=== PATIENT | female | born 1940 | race Caucasian/White ===

== ENCOUNTER → 2021-11-30 10:10 | Outpatient (CLI) | payer MEDICARE, OTHER, SELFPAY ==
[2021-11-30 10:42] LABS: Add Manual Diff / Slide Review NO; Basophils Absolute Auto 0 /uL (0-100); Basophils Percent Auto 0.9 % (0-2); Eosinophils Absolute Auto 200 /uL (0-450); Eosinophils Percent Auto 3.4 % (2-4); Hematocrit 37.9 % (36-46); Hemoglobin 12.7 g/dL (12.0-16.0); Lymphocytes Absolute Auto 900 /uL (1100-4500); Lymphocytes Percent Auto 18.5 % (25-40); Mean Corpuscular HGB Conc 33.7 % (30-36); Mean Corpuscular Hemoglobin 32.4 PG (26-34); Mean Corpuscular Volume 96.2 fL (80-100); Monocytes Absolute Auto 500 /uL (0-900); Monocytes Percent Auto 11.4 % (3-14); Neutrophils Absolute Auto 3100 /uL (1500-7000); Neutrophils Percent Auto 65.8 % (50-75); Platelet Count 171 X10^3/uL (150-400); Red Blood Cell Count 3.94 X10^6/uL (4.0-5.2); Red Cell Distribution Width 14.6 % (11.6-14.8); White Blood Cell Count 4.8 X10^3/uL (4.5-11.0)
[2021-11-30 11:00] LABS: Blood Urea Nitrogen 32 mg/dL (7-17); Calcium 9.8 mg/dL (8.4-10.2); Carbon Dioxide 31 mmol/L (22-32); Chloride 100 mmol/L (98-107); Cholesterol 193 mg/dL (140-199); Estimated Glomerular Filt Rate > 60.0 mL/min (>60); Glucose 91 mg/dL (80-110); HDL Cholesterol 48 mg/dL (40-60); HEMOLYSIS < 15 (0-50); LDL Cholesterol Calculated 125 mg/dL (<100); Potassium 5.3 mmol/L (3.4-5.1); Sodium 138 mmol/L (137-145); Triglycerides 100 mg/dL (35-150)
[2021-11-30 11:05] LABS: Rheumatoid Factor < 8.6 IU/mL (<12.0)
[2021-12-03 21:46] LABS: CCP Antibodies IgG/IgA 2 units (0-19)
== END ==
PROVIDERS: Family Provider Family Medicine; PCP Family Medicine; Referring Provider Family Medicine; Visit Provider Family Medicine
DX: J44.9 Chronic obstructive pulmonary disease, unspecified (principal); M79.641 Pain in right hand; Z13.220 Encounter for screening for lipoid disorders; M79.642 Pain in left hand
CPT/HCPCS: 36415; 80048; 80061; 85025; 86200; 86430

== ENCOUNTER → 2021-12-08 12:56 | Outpatient (CLI) | payer MEDICARE, OTHER, SELFPAY ==
--- NOTE | 2021-12-08 13:00 | DI.RAD.S_ITS ---
PROCEDURE: XR HAND RT MIN 3V INDICATIONS: Bilateral hand pain and deformation TECHNIQUE: 3 views of the hand(s) acquired. COMPARISON: None. FINDINGS: Bones: No fractures or dislocations. Carpal bones are normally aligned. No suspicious bony lesions. There are osteoarthritic changes, severe at the 1st carpometacarpal joint and the 5th distal interphalangeal joint, moderate at the 1st interphalangeal joint, the 2nd metacarpophalangeal joint, and the 4th proximal interphalangeal joint, and mild at multiple multiple other joints. There is periarticular bony erosion at the 5th distal interphalangeal joint. Soft tissues: Periarticular soft tissue swelling. No suspicious soft tissue calcifications. IMPRESSION: Severe osteoarthritic changes with bony erosion and soft tissue swelling. Recommend clinical correlation for inflammatory arthritis such as erosive OA. Dictated by: Timo Lau M.D. on 12/08/2021 at 17:44 Approved by: Timo Lau M.D. on 12/09/2021 at 8:09
--- NOTE | 2021-12-08 13:00 | DI.RAD.S_ITS ---
PROCEDURE: XR HAND LT MIN 3V INDICATIONS: Bilateral hand pain and deformation TECHNIQUE: 3 views of the hand(s) acquired. COMPARISON: None. FINDINGS: Bones: No fractures or dislocations. Carpal bones are normally aligned. No suspicious bony lesions. Severe 1st carpometacarpal joint degeneration. Degenerative joint disease in multiple interphalangeal joints. Periarticular bony erosion is present, most pronounced at the 5th distal interphalangeal joint. Soft tissues: No suspicious soft tissue calcifications. 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 Dictated by: Timo Lau M.D. on 12/08/2021 at 17:44 Approved by: Timo Lau M.D. on 12/09/2021 at 8:11
== END ==
PROVIDERS: Family Provider Family Medicine; PCP Family Medicine; Referring Provider Family Medicine; Visit Provider Family Medicine
DX: M18.12 Unilateral primary osteoarthritis of first carpometacarpal joint, left hand (principal); M19.042 Primary osteoarthritis, left hand; M79.641 Pain in right hand; M79.642 Pain in left hand; M79.89 Other specified soft tissue disorders; M25.449 Effusion, unspecified hand
CPT/HCPCS: 73130

== ENCOUNTER → 2022-02-01 11:51 | Outpatient (CLI) | payer MEDICARE, OTHER, SELFPAY ==
[2022-02-01 13:15] LABS: Alanine Aminotransferase 14 IU/L (<35); Albumin 4.4 g/dL (3.5-5.0); Albumin Globulin Ratio 1.7 (1.0-2.8); Alkaline Phosphatase 50 U/L (38-126); Aspartate Aminotransferase 22 IU/L (14-36); BUN Creatinine Ratio 33.7 (6-22); Bilirubin Total 0.4 mg/dL (0.2-1.3); Blood Urea Nitrogen 29 mg/dL (7-17); Calcium 9.4 mg/dL (8.4-10.2); Carbon Dioxide 31 mmol/L (22-32); Chloride 100 mmol/L (98-107); Estimated Glomerular Filt Rate > 60 mL/min (>60); Globulin 2.6 g/dL (1.7-4.1); Glucose 88 mg/dL (80-110); HEMOLYSIS < 15 (0-50); Sodium 136 mmol/L (137-145)
== END ==
PROVIDERS: Family Provider Family Medicine; PCP Family Medicine; Referring Provider Family Medicine; Visit Provider Family Medicine
DX: Z79.899 Other long term (current) drug therapy (principal)
CPT/HCPCS: 36415; 80053

== ENCOUNTER → 2022-03-16 13:45 | Outpatient (CLI) | payer MEDICARE, OTHER, SELFPAY ==
[2022-03-16 15:20] LABS: Alanine Aminotransferase 13 IU/L (<35); Albumin 4.5 g/dL (3.5-5.0); Albumin Globulin Ratio 1.8 (1.0-2.8); Alkaline Phosphatase 50 U/L (38-126); Aspartate Aminotransferase 22 IU/L (14-36); Bilirubin Total 0.4 mg/dL (0.2-1.3); Blood Urea Nitrogen 31 mg/dL (7-17); Calcium 9.5 mg/dL (8.4-10.2); Carbon Dioxide 30 mmol/L (22-32); Chloride 99 mmol/L (98-107); Estimated Glomerular Filt Rate > 60 mL/min (>60); Globulin 2.5 g/dL (1.7-4.1); Glucose 98 mg/dL (80-110); HEMOLYSIS < 15 (0-50); Potassium 5.2 mmol/L (3.4-5.1); Sodium 137 mmol/L (137-145)
== END ==
PROVIDERS: Family Provider Family Medicine; PCP Family Medicine; Referring Provider Family Medicine; Visit Provider Family Medicine
DX: Z79.899 Other long term (current) drug therapy (principal)
CPT/HCPCS: 36415; 80053

== ENCOUNTER → 2022-06-02 13:58 | Outpatient (CLI) | payer MEDICARE, OTHER, SELFPAY ==
[2022-06-02 18:26] LABS: BUN Creatinine Ratio 32.3 (6-22); Blood Urea Nitrogen 30 mg/dL (7-17); Calcium 9.3 mg/dL (8.4-10.2); Carbon Dioxide 33 mmol/L (22-32); Chloride 97 mmol/L (98-107); Estimated Glomerular Filt Rate > 60 mL/min (>60); Glucose 74 mg/dL (80-110); HEMOLYSIS < 15 (0-50); Potassium 5.2 mmol/L (3.4-5.1); Sodium 140 mmol/L (137-145)
== END ==
PROVIDERS: Family Provider Family Medicine; PCP Family Medicine; Referring Provider Family Medicine; Visit Provider Family Medicine
DX: E87.5 Hyperkalemia (principal); R79.9 Abnormal finding of blood chemistry, unspecified
CPT/HCPCS: 36415; 80048

== ENCOUNTER → 2022-09-07 11:18 | Outpatient (CLI) | payer MEDICARE, OTHER, SELFPAY ==
[2022-09-07 12:08] LABS: Add Manual Diff / Slide Review NO; Basophils Absolute Auto 0 /uL (0-100); Basophils Percent Auto 0.3 % (0-2); Eosinophils Absolute Auto 200 /uL (0-450); Eosinophils Percent Auto 3.2 % (2-4); Hematocrit 40.5 % (36-46); Hemoglobin 13.2 g/dL (12.0-16.0); Lymphocytes Absolute Auto 600 /uL (1100-4500); Lymphocytes Percent Auto 10.3 % (25-40); Mean Corpuscular HGB Conc 32.5 % (30-36); Mean Corpuscular Hemoglobin 32.8 PG (26-34); Monocytes Absolute Auto 700 /uL (0-900); Monocytes Percent Auto 11.8 % (3-14); Neutrophils Absolute Auto 4100 /uL (1500-7000); Neutrophils Percent Auto 74.4 % (50-75); Platelet Count 188 X10^3/uL (150-400); Red Blood Cell Count 4.01 X10^6/uL (4.0-5.2); Red Cell Distribution Width 15.3 % (11.6-14.8); White Blood Cell Count 5.6 X10^3/uL (4.5-11.0)
[2022-09-07 12:20] LABS: Blood Urea Nitrogen 27 mg/dL (7-17); Calcium 9.7 mg/dL (8.4-10.2); Carbon Dioxide 31 mmol/L (22-32); Chloride 99 mmol/L (98-107); Estimated Glomerular Filt Rate > 60 mL/min (>60); Glucose 87 mg/dL (80-110); HEMOLYSIS < 15 (0-50); Potassium 5.2 mmol/L (3.4-5.1); Sodium 138 mmol/L (137-145)
== END ==
PROVIDERS: Family Provider Family Medicine; PCP Family Medicine; Referring Provider Family Medicine; Visit Provider Family Medicine
DX: E87.5 Hyperkalemia (principal); J44.9 Chronic obstructive pulmonary disease, unspecified; Z79.899 Other long term (current) drug therapy
CPT/HCPCS: 36415; 80048; 85025

== ENCOUNTER 2022-11-03 18:46 | Emergency (ER) | payer MEDICARE, OTHER, SELFPAY ==
[2022-11-03] VITALS (9 sets, daily range): BP systolic 114–166; BP diastolic 55–99; PULSE 92–107; RESP 17–38; TEMP 36.7; O2SAT 89–96
--- NOTE | 2022-11-03 19:01 | DI.RAD.S_ITS ---
PROCEDURE: XR CHEST 1V INDICATIONS: Shortness of breath TECHNIQUE: One view of the chest was acquired. COMPARISON: None. FINDINGS: Surgical changes and devices: None. Lungs and pleura: Lungs are clear. No pleural effusions or pneumothorax. Mediastinum: Mediastinal contours appear normal. Heart size is mildly prominent. Bones and chest wall: No suspicious bony lesions. Overlying soft tissues appear unremarkable. Prominent degenerative changes are present overlying the right shoulder. IMPRESSION: No acute pulmonary process. Dictated by: Roxi Alexis M.D. on 11/03/2022 at 19:23 Approved by: Roxi Alexis M.D. on 11/03/2022 at 19:24
--- NOTE | 2022-11-03 19:52 | ED_ITS ---
HPI - General Adult General Chief complaint: Shortness of Breath/Dyspnea Stated complaint: cough shot of breath Time Seen by Provider: 11/03/22 19:02 Source: patient Mode of arrival: Wheelchair History of Present Illness HPI narrative: Patient is an 81-year-old female. States she frequently gets pneumonia. Is on oxygen at home not for underlying lung issues but because she is very kyphotic and this causes her to have problems expanding her lungs. States she wears oxygen at night and during the day when she needs it. She states that since this morning she has had a cough increase in shortness of breath. She states she is feeling very congested. No chest pain. No lower extremity swelling. She is concerned that she may have pneumonia once again. Related Data Home Medications Medication Instructions Recorded Confirmed duloxetine 30 mg capsule,delayed 90 mg PO BEDTIME 03/04/21 09/07/22 release (Cymbalta) calcium [calcium citrate] PO 12/31/21 09/07/22 cholecalciferol (vitamin D3) PO 12/31/21 09/07/22 multivitamin 1 tab PO DAILY 12/31/21 09/07/22 Previous Rx's Medication Instructions Recorded betamethasone valerate 0.1 % 1 applic topical BID PRN rash #45 11/26/21 topical cream grams Wheel Chair #1 ea 12/31/21 gabapentin 600 mg tablet 600 mg PO TID #270 tabs 01/08/22 albuterol sulfate 90 mcg/actuation 1 - 2 inh inhalation Q4-6H PRN 07/30/22 aerosol inhaler shortness of breath or wheezing #8.5 grams folic acid 1 mg tablet 1 mg PO DAILY #30 tabs 07/30/22 tiotropium bromide 18 mcg capsule 1 cap inhalation DAILY #30 07/30/22 with inhalation device (Spiriva inhalations with HandiHaler) celecoxib 200 mg capsule (Celebrex) 200 mg PO QDAY #90 caps 08/31/22 tramadol 50 mg tablet 50 mg PO QID #360 tabs 09/01/22 methotrexate sodium 7.5 mg tablet 7.5 mg PO QWEEK #12 tabs 09/07/22 hydrocodone 10 mg-acetaminophen 1 tab PO TID PRN pain #90 tabs 10/07/22 325 mg tablet amlodipine 5 mg tablet 5 mg PO DAILY #90 tabs 10/20/22 lisinopril 20 mg tablet 20 mg PO DAILY #90 tabs 10/20/22 hydrochlorothiazide 25 mg tablet 25 mg PO DAILY #90 tabs 10/22/22 hydrochlorothiazide 50 mg tablet 50 mg PO DAILY #90 tabs 10/22/22 azithromycin 250 mg tablet 250 mg PO DAILY 4 days #4 tabs 11/03/22 Allergies Allergy/AdvReac Type Severity Reaction Status Date / Time Penicillins Allergy Mild ITCHING Verified 09/07/22 10:46 Sulfa (Sulfonamide Allergy Mild ITCHING Verified 09/07/22 10:46 Antibiotics) oxycodone AdvReac Mild Nausea, Verified 09/07/22 10:46 vomiting Review of Systems Constitutional Constitutional: Reports system reviewed and no additional complaints, except as documented ENT Ears, Nose, Mouth, and Throat: Reports system reviewed and no additional complaints, except as documented Respiratory Respiratory: Reports system reviewed and no additional complaints, except as documented Hematologic/Lymphatic On Anticoagulants: No Patient History Medical History Bilateral hand pain Latasha albicans infection Chronic neck and back pain COPD (chronic obstructive pulmonary disease) Dry cough Eczema Elevated BUN Finger joint swelling Hyperkalemia On methotrexate therapy Social History Smoking Status: Former smoker alcohol intake: never substance use type: does not use Smoking Status: Former smoker Substance Use Type: does not use Exam Initial Vital Signs Initial Vital Signs: Vital Signs Temperature 98.1 F 11/03/22 18:55 Pulse Rate 107 H 11/03/22 18:55 Respiratory Rate 24 11/03/22 18:55 Blood Pressure 166/99 H 11/03/22 18:55 Pulse Oximetry 89 L 11/03/22 18:55 Oxygen Delivery Method Nasal Cannula 11/03/22 18:55 Oxygen Flow Rate 2 11/03/22 18:55 Const General: comfortable Resp Effort & Inspection: not labored, no respiratory distress and tachypneic Auscultation: clear to auscultation bilaterally Cardio Rate: tachycardic Rhythm: regular rhythm Back/Spine/Pelvis Other: Kyphosis Neuro General: patient alert and patient awake Extrem General: normal to inspection Course Orders Ordered: ED Orders 11/03/22 19:01 XR chest 1V Stat EKG-12 Lead Stat Measure peak expiratory flow ONCE RT Consult Eval and Treat NOW 11/03/22 19:40 Complete Blood Count AUTO DIFF Stat Comprehensive Metabolic Panel Stat Lactate (Lactic Acid) Stat NT-proBNP (BNP-Adult 18+) Stat Prothrombin Time INR Stat Respiratory Panel (Film Array) Stat Troponin I Stat Discontinued Medications Azithromycin (Azithromycin 250 Mg Tablet) 500 mg PO NOW ONE Stop: 11/03/22 21:25 Last Admin: 11/03/22 21:44 Dose: 500 mg Documented By: HNG Vital Signs Vital signs: Vital Signs - 8 hr 11/03/22 18:55 11/03/22 19:40 11/03/22 19:43 Temperature 98.1 F Pulse Rate 107 H 104 H Respiratory Rate 24 Blood Pressure 166/99 H 140/63 Pulse Oximetry 89 L 94 Oxygen Delivery Method Nasal Cannula Oxygen Flow Rate 2 11/03/22 19:43 11/03/22 20:00 11/03/22 20:01 Temperature Pulse Rate 102 H 101 H 97 H Respiratory Rate 34 H 38 H Blood Pressure Pulse Oximetry 93 90 L 92 Oxygen Delivery Method Oxygen Flow Rate 11/03/22 20:01 11/03/22 20:30 11/03/22 20:31 Temperature Pulse Rate 96 H Respiratory Rate 19 Blood Pressure 138/63 136/61 Pulse Oximetry 91 Oxygen Delivery Method Oxygen Flow Rate 11/03/22 20:31 11/03/22 21:00 11/03/22 21:00 Temperature Pulse Rate 99 H 92 H Respiratory Rate 20 17 Blood Pressure 114/55 L Pulse Oximetry 91 96 Oxygen Delivery Method Oxygen Flow Rate 11/03/22 21:30 11/03/22 21:30 Temperature Pulse Rate 101 H Respiratory Rate 37 H Blood Pressure 127/89 Pulse Oximetry 94 Oxygen Delivery Method Oxygen Flow Rate Medical Decision Making Lab Data Lab results reviewed: Yes I reviewed the patient's lab results. 11/03/22 19:40 11/03/22 19:40 Labs: Lab Results 11/03/22 11/03/22 11/03/22 Range/Units 19:40 19:40 19:40 WBC 7.0 (4.5-11.0) X10^3/uL RBC 3.79 L (4.0-5.2) X10^6/uL Hgb 12.6 (12.0-16.0) g/dL Hct 39.1 (36-46) % MCV 103.2 H (80-100) fL MCH 33.1 (26-34) PG MCHC 32.1 (30-36) % RDW 15.3 H (11.6-14.8) % Plt Count 152 (150-400) X10^3/uL Neut % (Auto) 82.7 H (50-75) % Lymph % (Auto) 7.0 L (25-40) % [place] % (Auto) 6.9 (3-14) % Eos % (Auto) 2.2 (2-4) % Baso % (Auto) 1.2 (0-2) % Neut # (Auto) 5800 (1963-9905) /uL Lymph # (Auto) 500 L (5465-3071) /uL [place] # (Auto) 500 (0-900) /uL Eos # (Auto) 200 (0-450) /uL Baso # (Auto) 100 (0-100) /uL PT 12.0 (10.1-12.7) SECONDS INR 1.0 (0.9-1.3) Sodium 138 (137-145) mmol/L Potassium 5.1 (3.4-5.1) mmol/L Chloride 98 (98-107) mmol/L Carbon Dioxide 35 H (22-32) mmol/L BUN 27 H (7-17) mg/dL Creatinine 0.64 (0.52-1.04) mg/dL Estimated GFR > 60 (>60) mL/min BUN/Creatinine Ratio 42.2 H (6-22) Glucose 116 H (80-110) mg/dL Lactate (0.7-2.1) mmol/L Calcium 9.2 (8.4-10.2) mg/dL Total Bilirubin 0.4 (0.2-1.3) mg/dL AST 21 (14-36) IU/L ALT 17 (<35) IU/L Alkaline Phosphatase 66 (38-126) U/L Troponin I < 0.012 (0.01-0.034) ng/mL NT-Pro-B Natriuret Pep 138 (<450) pg/mL Total Protein 7.5 (6.3-8.2) g/dL Albumin 4.4 (3.5-5.0) g/dL Globulin 3.1 (1.7-4.1) g/dL Albumin/Globulin Ratio 1.4 (1.0-2.8) Chlamy pneumoniae PCR (Not Detect) Adenovirus (PCR) (Not Detect) B. pertussis DNA (PCR) (Not Detecte) B.parapertussis DNA PCR (Not Detecte) Coronavirus OC43 (PCR) (Not Detect) Coronavirus HKU1 (PCR) (Not Detect) Coronavirus 229E (PCR) (Not Detect) SARS-CoV-2 (PCR) (Not Detecte) Coronavirus NL63 (PCR) (Not Detect) Human Metapneumovir PCR (Not Detect) Influenza Type A (PCR) (Not Detect) Influenza Type B (PCR) (Not Detect) M. pneumoniae (PCR) (Not Detect) Parainfluenza 1 (PCR) (Not Detect) Parainfluenza 2 (PCR) (Not Detect) Parainfluenza 3 (PCR) (Not Detect) Parainfluenza 4 (PCR) (Not Detect) RSV (PCR) (Not Detect) Entero/Rhino (PCR) (Not Detect) 11/03/22 11/03/22 Range/Units 19:40 19:40 WBC (4.5-11.0) X10^3/uL RBC (4.0-5.2) X10^6/uL Hgb (12.0-16.0) g/dL Hct (36-46) % MCV (80-100) fL MCH (26-34) PG MCHC (30-36) % RDW (11.6-14.8) % Plt Count (150-400) X10^3/uL Neut % (Auto) (50-75) % Lymph % (Auto) (25-40) % [place] % (Auto) (3-14) % Eos % (Auto) (2-4) % Baso % (Auto) (0-2) % Neut # (Auto) (4283-3474) /uL Lymph # (Auto) (5018-0260) /uL [place] # (Auto) (0-900) /uL Eos # (Auto) (0-450) /uL Baso # (Auto) (0-100) /uL PT (10.1-12.7) SECONDS INR (0.9-1.3) Sodium (137-145) mmol/L Potassium (3.4-5.1) mmol/L Chloride (98-107) mmol/L Carbon Dioxide (22-32) mmol/L BUN (7-17) mg/dL Creatinine (0.52-1.04) mg/dL Estimated GFR (>60) mL/min BUN/Creatinine Ratio (6-22) Glucose (80-110) mg/dL Lactate 0.7 (0.7-2.1) mmol/L Calcium (8.4-10.2) mg/dL Total Bilirubin (0.2-1.3) mg/dL AST (14-36) IU/L ALT (<35) IU/L Alkaline Phosphatase (38-126) U/L Troponin I (0.01-0.034) ng/mL NT-Pro-B Natriuret Pep (<450) pg/mL Total Protein (6.3-8.2) g/dL Albumin (3.5-5.0) g/dL Globulin (1.7-4.1) g/dL Albumin/Globulin Ratio (1.0-2.8) Chlamy pneumoniae PCR Not detected (Not Detect) Adenovirus (PCR) Not detected (Not Detect) B. pertussis DNA (PCR) Not detected (Not Detecte) B.parapertussis DNA PCR Not detected (Not Detecte) Coronavirus OC43 (PCR) Not detected (Not Detect) Coronavirus HKU1 (PCR) Not detected (Not Detect) Coronavirus 229E (PCR) Not detected (Not Detect) SARS-CoV-2 (PCR) Not detected (Not Detecte) Coronavirus NL63 (PCR) Not detected (Not Detect) Human Metapneumovir PCR Not detected (Not Detect) Influenza Type A (PCR) Not detected (Not Detect) Influenza Type B (PCR) Not detected (Not Detect) M. pneumoniae (PCR) Not detected (Not Detect) Parainfluenza 1 (PCR) Not detected (Not Detect) Parainfluenza 2 (PCR) Not detected (Not Detect) Parainfluenza 3 (PCR) Not detected (Not Detect) Parainfluenza 4 (PCR) Not detected (Not Detect) RSV (PCR) Not detected (Not Detect) Entero/Rhino (PCR) Not detected (Not Detect) Imaging Data Chest x-ray: Radiologist's Impression: PROCEDURE:? XR CHEST 1V ? INDICATIONS:? Shortness of breath ? TECHNIQUE:? One view of the chest was acquired.? ? COMPARISON:? None. ? FINDINGS:? ? Surgical changes and devices:? None.? ? Lungs and pleura:? Lungs are clear.? No pleural effusions or pneumothorax.? ? Mediastinum:? Mediastinal contours appear normal.? Heart size is mildly prominent. ? Bones and chest wall:? No suspicious bony lesions.? Overlying soft tissues appear unremarkable.? Prominent degenerative changes are present overlying the right shoulder. ? IMPRESSION:? No acute pulmonary process. ECG Data Attestation: I personally reviewed and interpreted this ECG as follows: Interpretation: Sinus tachycardia Ventricular rate 108 Normal axis Normal QRS Normal QTC No ST T wave changes MDM Narrative Medical decision making narrative: Her chest x-rays is unremarkable and her respiratory panel is negative. Patient is able to maintain her oxygen saturations on oxygen by nasal cannula. She is congested on exam. Low suspicion for ACS. Had a discussion with her regarding this. I acknowledged that the patient does not have a specific indication of a bacterial pneumonia/infection and the nasal congestion is most likely viral in origin however given her chronic medical issues, use of oxygen, inability to perform good breathing and coughing I feel that treating her with antibiotics to prevent any potential issues with pneumonia would be warranted in her case. She was given a 1st dose here in the emergency department and a prescription for the remainder was sent to the pharmacy of her choice. She was given return precautions. She expressed understanding and agreement. Discharge Plan Departure Patient Disposition: Home Clinical Impression: Acute upper respiratory infection Instructions: Cough Activity Restrictions/Additional Instructions: I recommend that you continue to take all of your medications as directed. A prescription for the remainder of the course of antibiotics was sent to [facility] per your request. Return to the emergency department for any new or worsening symptoms. Prescriptions: New azithromycin 250 mg tablet 250 mg PO DAILY 4 Days Qty: 4 0RF Rx Instructions: start on day 2 of therapy No Action betamethasone valerate 0.1 % cream 1 applic topical BID PRN (Reason: rash) Qty: 45 5RF gabapentin 600 mg tablet 600 mg PO TID Qty: 270 3RF celecoxib [Celebrex] 200 mg capsule 200 mg PO QDAY Qty: 90 0RF tramadol 50 mg tablet 50 mg PO QID Qty: 360 0RF hydrocodone-acetaminophen 10-325 mg tablet 1 tab PO TID PRN (Reason: pain) Qty: 90 0RF amlodipine 5 mg tablet 5 mg PO DAILY Qty: 90 3RF lisinopril 20 mg tablet 20 mg PO DAILY Qty: 90 2RF hydrochlorothiazide 50 mg tablet 50 mg PO DAILY Qty: 90 2RF Rx Instructions: TAKE WITH 25MG TAB FOR TOTAL 75MG DAILY DOSE hydrochlorothiazide 25 mg tablet 25 mg PO DAILY Qty: 90 2RF Rx Instructions: TAKE WITH 50MG TABLET FOR TOTAL 75 MG DOSE duloxetine [Cymbalta] 30 mg capsule,delayed release(DR/EC) 90 mg PO BEDTIME methotrexate sodium 7.5 mg tablet 7.5 mg PO QWEEK Qty: 12 3RF multivitamin Tablet 1 tab PO DAILY calcium [calcium citrate] PO cholecalciferol (vitamin D3) PO (DME) Wheel Chair See Rx Instructions .Route .MEDSUPPLY Qty: 1 0RF Rx Instructions: As directed Spiriva with HandiHaler 18 mcg capsule, w/inhalation device 1 cap inhalation DAILY Qty: 30 11RF Rx Instructions: puncture 1 cap using device; one dose = 2 inhalations albuterol sulfate 90 mcg/actuation HFA aerosol inhaler 1 - 2 inh inhalation Q4-6H PRN (Reason: shortness of breath or wheezing) Qty: 8.5 11RF folic acid 1 mg tablet 1 mg PO DAILY Qty: 30 11RF Rx Instructions: while on methotrexate Referrals: Mj Velasquez DO [Primary Care Provider] - Stand Alone Forms: Patient Portal/API
[2022-11-03 19:55] LABS: Add Manual Diff / Slide Review NO; Basophils Absolute Auto 100 /uL (0-100); Basophils Percent Auto 1.2 % (0-2); Eosinophils Absolute Auto 200 /uL (0-450); Eosinophils Percent Auto 2.2 % (2-4); Hematocrit 39.1 % (36-46); Hemoglobin 12.6 g/dL (12.0-16.0); Lymphocytes Absolute Auto 500 /uL (1100-4500); Mean Corpuscular HGB Conc 32.1 % (30-36); Mean Corpuscular Hemoglobin 33.1 PG (26-34); Mean Corpuscular Volume 103.2 fL (80-100); Monocytes Absolute Auto 500 /uL (0-900); Monocytes Percent Auto 6.9 % (3-14); Neutrophils Absolute Auto 5800 /uL (1500-7000); Neutrophils Percent Auto 82.7 % (50-75); Platelet Count 152 X10^3/uL (150-400); Red Blood Cell Count 3.79 X10^6/uL (4.0-5.2); Red Cell Distribution Width 15.3 % (11.6-14.8)
[2022-11-03 20:02] LABS: Lactate (Lactic Acid) 0.7 mmol/L (0.7-2.1)
[2022-11-03 20:03] LABS: Alanine Aminotransferase 17 IU/L (<35); Albumin 4.4 g/dL (3.5-5.0); Albumin Globulin Ratio 1.4 (1.0-2.8); Alkaline Phosphatase 66 U/L (38-126); Aspartate Aminotransferase 21 IU/L (14-36); BUN Creatinine Ratio 42.2 (6-22); Bilirubin Total 0.4 mg/dL (0.2-1.3); Blood Urea Nitrogen 27 mg/dL (7-17); Calcium 9.2 mg/dL (8.4-10.2); Carbon Dioxide 35 mmol/L (22-32); Chloride 98 mmol/L (98-107); Estimated Glomerular Filt Rate > 60 mL/min (>60); Globulin 3.1 g/dL (1.7-4.1); Glucose 116 mg/dL (80-110); HEMOLYSIS < 15 (0-50); Potassium 5.1 mmol/L (3.4-5.1); Sodium 138 mmol/L (137-145); Total Protein 7.5 g/dL (6.3-8.2)
[2022-11-03 20:15] LABS: NT-proBNP (BNP-Adult 18+) 138 pg/mL (<450); Troponin I < 0.012 ng/mL (0.01-0.034)
[2022-11-03 20:41] LABS: Adenovirus Not Detected (Not Detect); B. parapertussis Not Detected (Not Detecte); Bordetella pertussis Not Detected (Not Detecte); Chlamydophila pneumoniae Not Detected (Not Detect); Coronavirus 229E Not Detected (Not Detect); Coronavirus HKU1 Not Detected (Not Detect); Coronavirus NL 63 Not Detected (Not Detect); Coronavirus OC43 Not Detected (Not Detect); Human Metapneumovirus Not Detected (Not Detect); Human Rhinovirus/Enterovirus Not Detected (Not Detect); Influenza A Not Detected (Not Detect); Influenza B Not Detected (Not Detect); Mycoplasma pneumoniae Not Detected (Not Detect); Parainfluenza Virus 1 Not Detected (Not Detect); Parainfluenza Virus 2 Not Detected (Not Detect); Parainfluenza Virus 3 Not Detected (Not Detect); Parainfluenza Virus 4 Not Detected (Not Detect); Respiratory Syncytial Virus Not Detected (Not Detect); SARS- CoV-2 Not Detected (Not Detecte)
[2022-11-03] MEDS: AZITHROMYCIN 250 MG TABLET 500 MG PO (21:44)
== END 2022-11-03 21:50 | disposition home or self-care (01) ==
PROVIDERS: Emergency Provider Emergency Medicine; Family Provider Family Medicine; PCP Family Medicine
DX: J06.9 Acute upper respiratory infection, unspecified (principal); R05.9 Cough, unspecified; R06.02 Shortness of breath; Z20.822 Contact with and (suspected) exposure to COVID-19
CPT/HCPCS: 36415; 71045; 80053; 83605; 83880; 84484; 85025; 85610; 87633; 93005; 99284

== ENCOUNTER 2023-01-22 19:48 | Emergency (ER) | payer MEDICARE, OTHER, SELFPAY ==
[2023-01-22] VITALS (9 sets, daily range): BP systolic 96–116; BP diastolic 47–56; PULSE 92–104; RESP 18–36; O2SAT 84–93; BMI 27.8
--- NOTE | 2023-01-22 20:42 | ED.GENADULT ---
HPI - General Adult General Chief complaint: Weakness Stated complaint: fell shaky/not feeling well min urine Time Seen by Provider: 01/22/23 20:42 Source: patient and family Mode of arrival: Wheelchair History of Present Illness HPI narrative: 82-year-old female who earlier today slid down from her bed onto the floor. She did sustain some bruising to her right side. She did not hit her head. No other injuries from the event. She spends most of her time in a wheelchair although she can transition from the wheelchair to her bed or from the wheelchair to the couch the toilet. She can dress herself. She can put on her own shoes. She does bathe by herself but her family is normally in the house when this happens. She states she is here in the emergency department this evening because she potentially has a urinary tract infection. She also states she is feeling shaky and generally does not feel right. She denies chest pain or shortness of breath. No abdominal pain no nausea vomiting pain no headache. She is on oxygen home. No change in her respiratory status. Related Data Home Medications Medication Instructions Recorded Confirmed duloxetine 30 mg capsule,delayed 90 mg PO BEDTIME 03/04/21 01/04/23 release (Cymbalta) calcium [calcium citrate] PO 12/31/21 01/04/23 cholecalciferol (vitamin D3) PO 12/31/21 01/04/23 multivitamin 1 tab PO DAILY 12/31/21 01/04/23 Previous Rx's Medication Instructions Recorded betamethasone valerate 0.1 % 1 applic topical BID PRN rash #45 11/26/21 topical cream grams Wheel Chair #1 ea 12/31/21 albuterol sulfate 90 mcg/actuation 1 - 2 inh inhalation Q4-6H PRN 07/30/22 aerosol inhaler shortness of breath or wheezing #8.5 grams folic acid 1 mg tablet 1 mg PO DAILY #30 tabs 07/30/22 tramadol 50 mg tablet 50 mg PO QID #360 tabs 09/01/22 methotrexate sodium 7.5 mg tablet 7.5 mg PO QWEEK #12 tabs 09/07/22 amlodipine 5 mg tablet 5 mg PO DAILY #90 tabs 10/20/22 lisinopril 20 mg tablet 20 mg PO DAILY #90 tabs 10/20/22 hydrochlorothiazide 25 mg tablet 25 mg PO DAILY #90 tabs 10/22/22 hydrochlorothiazide 50 mg tablet 50 mg PO DAILY #90 tabs 10/22/22 tiotropium bromide 1.25 See Rx Instructions .Route 11/04/22 mcg/actuation mist for inhalation .COMPLEX #12 grams (Spiriva Respimat) gabapentin 600 mg tablet 600 mg PO TID #270 tabs 11/10/22 celecoxib 200 mg capsule (Celebrex) 200 mg PO QDAY #90 caps 12/01/22 hydrocodone 10 mg-acetaminophen 1 tab PO Q6H PRN pain #120 tabs 01/04/23 325 mg tablet Allergies Allergy/AdvReac Type Severity Reaction Status Date / Time Penicillins Allergy Mild ITCHING Verified 01/04/23 11:27 Sulfa (Sulfonamide Allergy Mild ITCHING Verified 01/04/23 11:27 Antibiotics) oxycodone AdvReac Mild Nausea, Verified 01/04/23 11:27 vomiting Review of Systems Review of Systems ROS Unobtainable: All systems reviewed & are unremarkable except as noted in HPI and below Patient History Medical History Acute thoracic back pain Bilateral hand pain Latasha albicans infection Chronic neck and back pain Chronic pain Chronic, continuous use of opioids COPD (chronic obstructive pulmonary disease) Dry cough Eczema Elevated BUN Finger joint swelling Hyperkalemia On methotrexate therapy Social History Smoking Status: Former smoker alcohol intake: never substance use type: does not use Smoking Status: Former smoker Substance Use Type: does not use Exam Initial Vital Signs Initial Vital Signs: Vital Signs Blood Pressure 116/54 L 01/22/23 20:17 Const General: cooperative and No ill appearing HENIL Head: normal to inspection and normocephalic Resp Effort & Inspection: tachypneic Auscultation: clear to auscultation bilaterally Cardio Rate: regular rate Rhythm: regular rhythm GI Inspection: normal to inspection and non-distended Skin Other: Bruising on the right flank and right lower back. There are no breaks in the skin. Only minimally tender to palpation. Neuro General: patient alert, patient awake and moves all extremities Extrem General: capillary refill normal Scores GCS [place] coma scale eye opening: Spontaneous [place] coma scale verbal response: Orientated Ingrid coma scale motor response: Obey commands [place] coma scale total score: 15 Course Orders Ordered: Discontinued Medications Lidocaine (Lidocaine Patch 1 Each Adh..Patch) 1 each TOP NOW ONE Stop: 01/22/23 22:29 Last Admin: 01/22/23 23:12 Dose: 1 each Documented By: ARTEMIO Vital Signs Vital signs: Vital Signs - 8 hr 01/22/23 22:00 01/22/23 22:30 01/22/23 22:34 Pulse Rate 93 H 100 H Respiratory Rate 21 29 H Blood Pressure 113/56 L Pulse Oximetry 93 84 L Oxygen Delivery Method Nasal Cannula Oxygen Flow Rate 3 01/22/23 23:00 01/22/23 23:00 Pulse Rate 92 H Respiratory Rate 26 H Blood Pressure 96/47 L Pulse Oximetry 87 L Oxygen Delivery Method Nasal Cannula Oxygen Flow Rate 3 Medical Decision Making Lab Data Lab results reviewed: Yes I reviewed the patient's lab results. 01/22/23 20:35 01/22/23 20:35 Labs: Lab Results 01/22/23 01/22/23 Range/Units 20:35 20:35 WBC 11.7 H (4.5-11.0) X10^3/uL RBC 3.48 L (4.0-5.2) X10^6/uL Hgb 11.6 L (12.0-16.0) g/dL Hct 36.3 (36-46) % MCV 104.3 H (80-100) fL MCH 33.2 (26-34) PG MCHC 31.9 (30-36) % RDW 15.8 H (11.6-14.8) % Plt Count 138 L (150-400) X10^3/uL Neut % (Auto) Not Reportable Lymph % (Auto) Not Reportable [place] % (Auto) Not Reportable Eos % (Auto) Not Reportable Baso % (Auto) Not Reportable Lymph # (Auto) Not Reportable [place] # (Auto) Not Reportable Baso # (Auto) Not Reportable Total Counted 100 Seg Neutrophils % 84.0 H (38-70) % Band Neutrophils % 7.0 (3-7) % Lymphocytes % (Manual) 2.0 L (25-45) % Monocytes % (Manual) 5.0 (2-11) % Eosinophils % (Manual) 1.0 L (2-4) % Basophils % (Manual) 1.0 (0-1) % Neutrophils # (Manual) 46144 H (1470-7318) /uL RBC Morphology See below Anisocytosis 1+ H Macrocytosis 1+ H Sodium 137 (137-145) mmol/L Potassium 5.1 (3.4-5.1) mmol/L Chloride 95 L (98-107) mmol/L Carbon Dioxide 37 H (22-32) mmol/L BUN 45 H (7-17) mg/dL Creatinine 1.09 H (0.52-1.04) mg/dL Estimated GFR 51 L (>60) mL/min BUN/Creatinine Ratio 41.3 H (6-22) Glucose 126 H (80-110) mg/dL Calcium 8.7 (8.4-10.2) mg/dL Total Bilirubin 0.4 (0.2-1.3) mg/dL AST 32 (14-36) IU/L ALT 36 H (<35) IU/L Alkaline Phosphatase 68 (38-126) U/L Total Creatine Kinase 44 (30-135) U/L CK-MB (CK-2) TNP CK-MB (CK-2) Rel Index TNP Troponin I < 0.012 (0.01-0.034) ng/mL Total Protein 7.3 (6.3-8.2) g/dL Albumin 4.2 (3.5-5.0) g/dL Globulin 3.1 (1.7-4.1) g/dL Albumin/Globulin Ratio 1.4 (1.0-2.8) Lipase 39 (23-300) U/L Urine Dip Bedside Urine Glucose Negative Bedside Urine Bilirubin - Negative Bedside Urine Ketone - Negative Urine Specific [place] 1.015 Bedside Urine Occult Blood - Negative Bedside Urine pH 6 Bedside Urine Protein - Negative Bedside Urine Urobilinogen - Negative Bedside Urine Nitrite - Negative Bedside Urine Leukocytes - Negative Esterase Point of care testing: Urine Dip Bedside Urine Glucose Negative Bedside Urine Bilirubin - Negative Bedside Urine Ketone - Negative Urine Specific [place] 1.015 Bedside Urine Occult Blood - Negative Bedside Urine pH 6 Bedside Urine Protein - Negative Bedside Urine Urobilinogen - Negative Bedside Urine Nitrite - Negative Bedside Urine Leukocytes - Negative Esterase ECG Data Attestation: I personally reviewed and interpreted this ECG as follows: Interpretation: Sinus rhythm Ventricular rate 95 Normal axis Normal QRS Normal QTC No ST T wave changes MDM Narrative Medical decision making narrative: Patient does not have signs of urinary tract infection. She is hypoxic but she states that at baseline she is in the mid 80s. She does have oxygen at home. Low suspicion for ACS. She does have bruising on her right flank however there are no other breaks in the skin. She is some very minor tenderness to palpation this area. No other abdominal tenderness. No indication for antibiotics. Reassured the patient workup here in the emergency department looks well which she was happy with this information. We will discharge patient home with family. She was given return precautions. She expressed understanding and agreement. Discharge Plan Departure Patient Disposition: Home Clinical Impression: Episodes of trembling, Contusion of flank and back Instructions: DI for Contusion Activity Restrictions/Additional Instructions: Continue to take all of your medications as directed. Contact your primary doctor for follow-up. Return to the emergency department for new or worsening symptoms. Prescriptions: No Action betamethasone valerate 0.1 % cream 1 applic topical BID PRN (Reason: rash) Qty: 45 5RF tramadol 50 mg tablet 50 mg PO QID Qty: 360 0RF amlodipine 5 mg tablet 5 mg PO DAILY Qty: 90 3RF lisinopril 20 mg tablet 20 mg PO DAILY Qty: 90 2RF hydrochlorothiazide 50 mg tablet 50 mg PO DAILY Qty: 90 2RF Rx Instructions: TAKE WITH 25MG TAB FOR TOTAL 75MG DAILY DOSE hydrochlorothiazide 25 mg tablet 25 mg PO DAILY Qty: 90 2RF Rx Instructions: TAKE WITH 50MG TABLET FOR TOTAL 75 MG DOSE Spiriva Respimat 1.25 mcg/actuation mist See Rx Instructions .ROUTE .COMPLEX Qty: 12 3RF Dose Instruction: USE 2 INHALATIONS DAILY Rx Instructions: USE 2 INHALATIONS DAILY gabapentin 600 mg tablet 600 mg PO TID Qty: 270 3RF celecoxib [Celebrex] 200 mg capsule 200 mg PO QDAY Qty: 90 1RF hydrocodone-acetaminophen 10-325 mg tablet 1 tab PO Q6H PRN (Reason: pain) Qty: 120 0RF duloxetine [Cymbalta] 30 mg capsule,delayed release(DR/EC) 90 mg PO BEDTIME methotrexate sodium 7.5 mg tablet 7.5 mg PO QWEEK Qty: 12 3RF multivitamin Tablet 1 tab PO DAILY calcium [calcium citrate] PO cholecalciferol (vitamin D3) PO (DME) Wheel Chair See Rx Instructions .Route .MEDSUPPLY Qty: 1 0RF Rx Instructions: As directed albuterol sulfate 90 mcg/actuation HFA aerosol inhaler 1 - 2 inh inhalation Q4-6H PRN (Reason: shortness of breath or wheezing) Qty: 8.5 11RF folic acid 1 mg tablet 1 mg PO DAILY Qty: 30 11RF Rx Instructions: while on methotrexate Referrals: Mj Velasquez, [Primary Care Provider] - Stand Alone Forms: Patient Portal/API
[2023-01-22 20:57] LABS: Alanine Aminotransferase 36 IU/L (<35); Albumin 4.2 g/dL (3.5-5.0); Albumin Globulin Ratio 1.4 (1.0-2.8); Alkaline Phosphatase 68 U/L (38-126); Aspartate Aminotransferase 32 IU/L (14-36); BUN Creatinine Ratio 41.3 (6-22); Bilirubin Total 0.4 mg/dL (0.2-1.3); Blood Urea Nitrogen 45 mg/dL (7-17); Calcium 8.7 mg/dL (8.4-10.2); Chloride 95 mmol/L (98-107); Creatine Kinase 44 U/L (30-135); Estimated Glomerular Filt Rate 51 mL/min (>60); Globulin 3.1 g/dL (1.7-4.1); Glucose 126 mg/dL (80-110); HEMOLYSIS < 15 (0-50); Lipase 39 U/L (23-300); Potassium 5.1 mmol/L (3.4-5.1); Sodium 137 mmol/L (137-145); Total Protein 7.3 g/dL (6.3-8.2)
[2023-01-22 21:02] LABS: Hematocrit 36.3 % (36-46); Hemoglobin 11.6 g/dL (12.0-16.0); Mean Corpuscular HGB Conc 31.9 % (30-36); Mean Corpuscular Hemoglobin 33.2 PG (26-34); Mean Corpuscular Volume 104.3 fL (80-100); Platelet Count 138 X10^3/uL (150-400); Red Blood Cell Count 3.48 X10^6/uL (4.0-5.2); Red Cell Distribution Width 15.8 % (11.6-14.8); White Blood Cell Count 11.7 X10^3/uL (4.5-11.0)
[2023-01-22 21:03] LABS: Carbon Dioxide 37 mmol/L (22-32)
[2023-01-22 21:08] LABS: Troponin I < 0.012 ng/mL (0.01-0.034)
[2023-01-22 21:44] LABS: Add Manual Diff / Slide Review YES
[2023-01-22 21:48] LABS: Neutrophils Absolute Manual 10647 /uL (3000-5900); Total Cells Counted 100
[2023-01-22 21:49] LABS: Anisocytosis 1+; Macrocytosis 1+
[2023-01-22] MEDS: LIDOCAINE PATCH 1 EACH ADH..PATCH TOP (23:12)
== END 2023-01-22 23:18 | disposition home or self-care (01) ==
PROVIDERS: Emergency Provider Emergency Medicine; Family Provider Family Medicine; PCP Family Medicine
DX: S30.1XXA Contusion of abdominal wall, initial encounter (principal); S30.0XXA Contusion of lower back and pelvis, initial encounter; W06.XXXA Fall from bed, initial encounter; R03.1 Nonspecific low blood-pressure reading
CPT/HCPCS: 36415; 80053; 81003; 82550; 83690; 84484; 85007; 85025; 93005; 93010; 99283; 99285

== ENCOUNTER → 2023-03-04 10:46 | Outpatient (CLI) | payer MEDICARE, OTHER, SELFPAY ==
[2023-03-04 11:50] LABS: Add Manual Diff / Slide Review NO; Basophils Absolute Auto 0 /uL (0-100); Basophils Percent Auto 0.6 % (0-2); Eosinophils Absolute Auto 200 /uL (0-450); Eosinophils Percent Auto 2.7 % (2-4); Hematocrit 43.8 % (36-46); Hemoglobin 14.2 g/dL (12.0-16.0); Lymphocytes Absolute Auto 700 /uL (1100-4500); Lymphocytes Percent Auto 11.9 % (25-40); Mean Corpuscular HGB Conc 32.5 % (30-36); Mean Corpuscular Hemoglobin 33.4 PG (26-34); Mean Corpuscular Volume 102.9 fL (80-100); Monocytes Absolute Auto 600 /uL (0-900); Monocytes Percent Auto 11.1 % (3-14); Neutrophils Absolute Auto 4100 /uL (1500-7000); Neutrophils Percent Auto 73.7 % (50-75); Platelet Count 146 X10^3/uL (150-400); Red Blood Cell Count 4.26 X10^6/uL (4.0-5.2); Red Cell Distribution Width 16.5 % (11.6-14.8); White Blood Cell Count 5.6 X10^3/uL (4.5-11.0)
[2023-03-04 12:16] LABS: HEMOLYSIS < 15 (0-50); Potassium 5.3 mmol/L (3.4-5.1)
[2023-03-04 12:17] LABS: Alanine Aminotransferase 17 IU/L (<35); Albumin 4.4 g/dL (3.5-5.0); Albumin Globulin Ratio 1.4 (1.0-2.8); Alkaline Phosphatase 63 U/L (38-126); Aspartate Aminotransferase 21 IU/L (14-36); BUN Creatinine Ratio 37.5 (6-22); Bilirubin Total 0.6 mg/dL (0.2-1.3); Blood Urea Nitrogen 30 mg/dL (7-17); Calcium 9.4 mg/dL (8.4-10.2); Carbon Dioxide 36 mmol/L (22-32); Chloride 95 mmol/L (98-107); Cholesterol 200 mg/dL (140-199); Estimated Glomerular Filt Rate > 60 mL/min (>60); Globulin 3.2 g/dL (1.7-4.1); Glucose 80 mg/dL (80-110); HDL Cholesterol 61 mg/dL (40-60); LDL Cholesterol Calculated 110 mg/dL (<100); Sodium 136 mmol/L (137-145); Total Protein 7.6 g/dL (6.3-8.2); Triglycerides 147 mg/dL (35-150)
== END ==
PROVIDERS: Family Provider Family Medicine; PCP Family Medicine; Referring Provider Family Medicine; Visit Provider Family Medicine
DX: E87.5 Hyperkalemia (principal); R79.9 Abnormal finding of blood chemistry, unspecified
CPT/HCPCS: 36415; 80053; 80061; 85025

== ENCOUNTER 2023-03-21 13:27 | Inpatient (IN) | payer MEDICARE, OTHER, SELFPAY ==
[2023-03-21] VITALS (33 sets, daily range): BP systolic 122–207; BP diastolic 58–88; PULSE 73–109; RESP 15–46; TEMP 35.9–36.7; O2SAT 83–100; BMI 27.4
--- NOTE | 2023-03-21 13:41 | DI.RAD.S_ITS ---
PROCEDURE: XR CHEST 1V INDICATIONS: Shortness of breath TECHNIQUE: One view of the chest was acquired. COMPARISON: [facility], CR, XR CHEST 1V, 11/03/2022, 19:13. FINDINGS: Surgical changes and devices: Post ORIF changes are seen in left humeral shaft. Lungs and pleura: There is mild pulmonary vascular congestion. No definite focal infiltrate. No pleural effusions or pneumothorax. Mediastinum: Tortuous thoracic aorta is seen. Heart size is enlarged. Bones and chest wall: No suspicious bony lesions. Overlying soft tissues appear unremarkable. IMPRESSION: Cardiomegaly and mild congestion. No definite focal infiltrate. No pleural effusion or pneumothorax. Dictated by: Rodolfo Gates M.D. on 03/21/2023 at 14:09 Approved by: Rodolfo Gates M.D. on 03/21/2023 at 14:10
[2023-03-21 13:56] LABS: Prothrombin Time 11.7 SECONDS (10.1-12.7)
--- NOTE | 2023-03-21 13:58 | ED_ITS ---
HPI - SOB/Dyspnea General Chief Complaint: Shortness of Breath/Dyspnea Stated Complaint: SOB 85% on 3L Time Seen by Provider: 03/21/23 13:53 Source: patient and EMS Mode of arrival: EMS Limitations: no limitations History of Present Illness HPI Narrative: Patient 82-year-old female history of severe scoliosis chronic back pain, restrictive lung disease secondary to osteoporotic thoracic compression fractures, osteoporosis presenting today with increasing weakness and increasing shortness of breath. She and daughter report that she is had increasing weakness over last 3 days. She is more productive cough. She has a decrease in appetite. Denies any fever. Does have an oxygen concentrator, she is needing it all the time now. Daughter reports that she frequently gets pneumonia that is only diagnosed on CT. She denies any peripheral edema abdominal pain nausea or vomiting. Related Data Home Medications Medication Instructions Recorded Confirmed cholecalciferol (vitamin D3) 1,000 units PO DAILY 12/31/21 03/08/23 multivitamin 1 tab PO DAILY 12/31/21 03/21/23 lidocaine 4 % topical patch 1 patch topical TID PRN Pain, Mild 03/21/23 03/21/23 Previous Rx's Medication Instructions Recorded Wheel Chair #1 ea 12/31/21 albuterol sulfate 90 mcg/actuation 1 - 2 inh inhalation Q4-6H PRN 07/30/22 aerosol inhaler shortness of breath or wheezing #8.5 grams folic acid 1 mg tablet 1 mg PO DAILY #30 tabs 07/30/22 methotrexate sodium 7.5 mg tablet 7.5 mg PO QWEEK #12 tabs 09/07/22 amlodipine 5 mg tablet 5 mg PO DAILY #90 tabs 10/20/22 lisinopril 20 mg tablet 20 mg PO DAILY #90 tabs 10/20/22 hydrochlorothiazide 25 mg tablet 25 mg PO DAILY #90 tabs 10/22/22 hydrochlorothiazide 50 mg tablet 50 mg PO DAILY #90 tabs 10/22/22 tiotropium bromide 1.25 See Rx Instructions .Route 11/04/22 mcg/actuation mist for inhalation .COMPLEX #12 grams (Spiriva Respimat) gabapentin 600 mg tablet 600 mg PO TID #270 tabs 11/10/22 celecoxib 200 mg capsule (Celebrex) 200 mg PO QDAY #90 caps 12/01/22 hydrocodone 10 mg-acetaminophen 1 tab PO Q6H PRN pain #120 tabs 02/23/23 325 mg tablet tramadol 50 mg tablet 50 mg PO QID #360 tabs 02/24/23 Secondary Oxygen concentrator #1 ea 03/21/23 Allergies Allergy/AdvReac Type Severity Reaction Status Date / Time Penicillins Allergy Mild ITCHING Verified 03/08/23 11:50 Sulfa (Sulfonamide Allergy Mild ITCHING Verified 03/08/23 11:50 Antibiotics) oxycodone AdvReac Mild Nausea, Verified 03/08/23 11:50 vomiting Review of Systems Review of Systems ROS Unobtainable: All systems reviewed & are unremarkable except as noted in HPI and below Patient History Medical History Acute thoracic back pain Bilateral hand pain Latasha albicans infection Chronic neck and back pain Chronic pain Chronic, continuous use of opioids COPD (chronic obstructive pulmonary disease) Dry cough Eczema Elevated BUN Finger joint swelling Hyperkalemia Inflamed seborrheic keratosis On methotrexate therapy Social History Smoking Status: Former smoker alcohol intake: never substance use type: does not use Smoking Status: Former smoker alcohol intake frequency: 0-2 drinks per day Substance Use Type: does not use Exam Initial Vital Signs Initial Vital Signs: Vital Signs Temperature 98.0 F 03/21/23 13:35 Pulse Rate 96 H 03/21/23 13:35 Respiratory Rate 22 03/21/23 13:35 Blood Pressure 130/62 03/21/23 13:35 Pulse Oximetry 95 03/21/23 13:35 Oxygen Delivery Method Nasal Cannula 03/21/23 13:35 Oxygen Flow Rate 4 03/21/23 13:35 GENERAL: Alert 82-year-old female and in no acute distress. HEENT: Head atraumatic,EOMI, pupils reactive, face symmetric, moist mucous membranes CARDIOVASCULAR: Regular rate and rhythm without murmurs, rubs or gallops. RESPIRATORY: Decreased breath sounds bilaterally no rales or rhonchi speaks in full sentences ABDOMEN: Soft, nontender. Normoactive bowel sounds all 4 quadrants. No guarding or rebound. EXTREMITIES: Normal range of motion, no clubbing or edema. Neurovascularly intact NEUROLOGICAL: Alert and oriented x4. SKIN: Warm, dry, no laceration, no petechiae, no rashes or lesions. Course Orders Ordered: ED Orders 03/21/23 13:40 BNP [NT-proBNP (BNP-Adult 18+)] Stat Complete Blood Count AUTO DIFF Stat Comprehensive Metabolic Panel Stat Lactate (Lactic Acid) Stat NT-proBNP (BNP-Adult 18+) Stat Procalcitonin Stat Prothrombin Time INR Stat Troponin I Stat 03/21/23 13:41 XR chest 1V Stat Measure peak expiratory flow ONCE RT Consult Eval and Treat NOW 03/21/23 14:55 Blood Culture Stat 03/21/23 15:47 ABG [Arterial Blood Gas] Stat 03/21/23 15:59 CT angio chest PE protocol Stat 03/21/23 17:05 Respiratory Panel (Film Array) Stat Acetaminophen (Acetaminophen 325 Mg Tablet) 650 mg PO Q6H PRN PRN Reason: Fever/Mild Pain (1-3) Hydrocodone Bitart/Acetaminophen (Hydrocodone/Acet 5/325 Tablet) 2 tab PO Q4H PRN PRN Reason: Pain, Severe (7-10) Hydrocodone Bitart/Acetaminophen (Hydrocodone/Acet 5/325 Tablet) 1 tab PO Q4H PRN PRN Reason: Pain, Moderate (4-6) Albuterol (Albuterol 2.5 Mg/3 Ml Neb (Adult)) 2.5 mg INH [id number] SANTI Albuterol (Albuterol 2.5 Mg/3 Ml Neb (Adult)) 2.5 mg INH [id number] PRN PRN Reason: Shortness Of Breath Albuterol/Ipratropium (Albuterol/Ipratropium 3 Ml Ampul) 3 ml INH RTBID SANTI Budesonide (Budesonide 0.5 Mg/2 Ml Neb) 0.5 mg INH RTBID SANTI Enoxaparin Sodium (Enoxaparin 40 Mg/0.4 Ml Syringe) 40 mg SUBCUT DAILY SANTI Gabapentin (Gabapentin 600 Mg Tablet) 600 mg PO TID SANTI Hydromorphone HCl (Hydromorphone 0.5 Mg Inj) 0.5 mg IV Q2H PRN PRN Reason: Pain, Severe (7-10) Lorazepam (Lorazepam 2 Mg/Ml Inj) 0.5 mg IV Q6HR PRN PRN Reason: Anxiety Naloxone HCl (Naloxone 0.4 Mg/Ml Vial) 0.2 mg IV Q2MIN PRN PRN Reason: Opiate Reversal Ondansetron HCl (Ondansetron 4 Mg/2 Ml Inj) 4 mg IV Q8HR PRN PRN Reason: Nausea And Vomiting Prednisone (Prednisone 20 Mg Tablet) 40 mg PO DAILY SANTI Tramadol HCl (Tramadol 50 Mg Tablet) 50 mg PO QID SANTI Discontinued Medications Hydrocodone Bitart/Acetaminophen (Hydrocodone/Acet 10/325 Tablet) 1 tab PO NOW ONE Stop: 03/21/23 14:25 Last Admin: 03/21/23 14:39 Dose: 1 tab Documented By: LEXI Albuterol/Ipratropium (Albuterol/Ipratropium 3 Ml Ampul) 3 ml INH NOW ONE Stop: 03/21/23 14:00 Last Admin: 03/21/23 14:02 Dose: 3 ml Documented By: FAHEEM Albuterol/Ipratropium (Albuterol/Ipratropium 3 Ml Ampul) 3 ml INH NOW ONE Stop: 03/21/23 15:13 Last Admin: 03/21/23 15:15 Dose: 3 ml Documented By: FAHEEM Budesonide (Budesonide 0.5 Mg/2 Ml Neb) 0.5 mg INH NOW ONE Stop: 03/21/23 14:00 Last Admin: 03/21/23 14:03 Dose: 0.5 mg Documented By: FAHEEM Gabapentin (Gabapentin 600 Mg Tablet) 600 mg PO NOW ONE Stop: 03/21/23 14:25 Last Admin: 03/21/23 14:38 Dose: 600 mg Documented By: LEXI Sodium Chloride (Normal Saline 0.9%) 1,000 mls @ 1,000 mls/hr IV BOLUS ONE Stop: 03/21/23 15:19 Last Infusion: 03/21/23 15:41 Dose: 0 mls/hr Documented By: Admin: 03/21/23 14:38 Dose: 1,000 mls/hr Documented By: LEXI Lidocaine (Lidocaine Patch 1 Each Adh..Patch) 1 each TOP NOW ONE Stop: 03/21/23 14:24 Last Admin: 03/21/23 14:39 Dose: 1 each Documented By: LEXI Methylprednisolone (Methylprednisolone 125 Mg/2 Ml Vial) 125 mg IV NOW ONE Stop: 03/21/23 19:17 Tramadol HCl (Tramadol 50 Mg Tablet) 50 mg PO NOW ONE Stop: 03/21/23 14:26 Last Admin: 03/21/23 14:39 Dose: 50 mg Documented By: RB Vital Signs Vital signs: Vital Signs - 8 hr 03/21/23 13:35 03/21/23 13:43 03/21/23 13:44 Temperature 98.0 F Pulse Rate 96 H 101 H 100 H Respiratory Rate 22 Blood Pressure 130/62 Pulse Oximetry 95 93 93 Oxygen Delivery Method Nasal Cannula Oxygen Flow Rate 4 03/21/23 13:44 03/21/23 14:05 03/21/23 14:00 Temperature Pulse Rate Respiratory Rate Blood Pressure 134/65 142/65 H Pulse Oximetry 93 Oxygen Delivery Method Nasal Cannula Oxygen Flow Rate 3 03/21/23 14:00 03/21/23 14:30 03/21/23 14:35 Temperature Pulse Rate 101 H 109 H 101 H Respiratory Rate 31 H 32 H 16 Blood Pressure Pulse Oximetry 91 Oxygen Delivery Method Oxygen Flow Rate 03/21/23 14:35 03/21/23 15:19 03/21/23 15:30 Temperature Pulse Rate 98 H Respiratory Rate 37 H Blood Pressure 207/88 H Pulse Oximetry 95 96 Oxygen Delivery Method Oximask Oximask Oxygen Flow Rate 5 3 03/21/23 15:35 03/21/23 15:35 03/21/23 16:00 Temperature Pulse Rate 99 H Respiratory Rate 26 H Blood Pressure 134/61 127/60 Pulse Oximetry 91 Oxygen Delivery Method Oximask Oxygen Flow Rate 3 03/21/23 16:00 03/21/23 16:30 03/21/23 17:00 Temperature Pulse Rate 96 H 97 H 104 H Respiratory Rate 18 24 28 H Blood Pressure Pulse Oximetry 96 95 99 Oxygen Delivery Method Oxygen Flow Rate 03/21/23 17:01 03/21/23 17:01 03/21/23 17:15 Temperature Pulse Rate 104 H 101 H Respiratory Rate 28 H 23 Blood Pressure 137/63 Pulse Oximetry 96 92 Oxygen Delivery Method Oxygen Flow Rate 03/21/23 17:15 03/21/23 17:30 03/21/23 17:30 Temperature Pulse Rate 98 H Respiratory Rate 18 Blood Pressure 132/64 133/61 Pulse Oximetry 95 Oxygen Delivery Method Oxygen Flow Rate MDM - SOB/Dyspnea Lab Data 03/21/23 13:40 03/21/23 13:40 Labs: Lab Results 03/21/23 03/21/23 03/21/23 Range/Units 13:40 13:40 13:40 WBC 8.2 (4.5-11.0) X10^3/uL RBC 3.76 L (4.0-5.2) X10^6/uL Hgb 12.7 (12.0-16.0) g/dL Hct 38.6 (36-46) % MCV 102.6 H (80-100) fL MCH 33.7 (26-34) PG MCHC 32.8 (30-36) % RDW 15.5 H (11.6-14.8) % Plt Count 142 L (150-400) X10^3/uL Neut % (Auto) 86.0 H (50-75) % Lymph % (Auto) 5.5 L (25-40) % [place] % (Auto) 6.9 (3-14) % Eos % (Auto) 1.3 L (2-4) % Baso % (Auto) 0.3 (0-2) % Neut # (Auto) 7100 H (3916-8658) /uL Lymph # (Auto) 500 L (0411-9140) /uL [place] # (Auto) 600 (0-900) /uL Eos # (Auto) 100 (0-450) /uL Baso # (Auto) 0 (0-100) /uL PT 11.7 (10.1-12.7) SECONDS INR 1.0 (0.9-1.3) ABG pH (7.35-7.45) ABG pCO2 (35-45) mmHg ABG pO2 (80-100) mmHg ABG HCO3 (23-27) mmol/L ABG Total CO2 (23-27) mmol/L ABG O2 Saturation (95-100) % ABG Base Excess (-2-3) mmol/L FiO2 Sodium 136 L (137-145) mmol/L Potassium 5.3 H (3.4-5.1) mmol/L Chloride 92 L (98-107) mmol/L Carbon Dioxide 39 H (22-32) mmol/L BUN 22 H (7-17) mg/dL Creatinine 0.57 (0.52-1.04) mg/dL Estimated GFR > 60 (>60) mL/min BUN/Creatinine Ratio 38.6 H (6-22) Glucose 112 H (80-110) mg/dL Lactate (0.7-2.1) mmol/L Calcium 9.0 (8.4-10.2) mg/dL Total Bilirubin 0.6 (0.2-1.3) mg/dL AST 30 (14-36) IU/L ALT 20 (<35) IU/L Alkaline Phosphatase 45 (38-126) U/L Troponin I 0.012 (0.01-0.034) ng/mL NT-Pro-B Natriuret Pep 240 (<450) pg/mL Total Protein 7.2 (6.3-8.2) g/dL Albumin 4.1 (3.5-5.0) g/dL Globulin 3.1 (1.7-4.1) g/dL Albumin/Globulin Ratio 1.3 (1.0-2.8) Procalcitonin (<0.5) ng/mL Chlamy pneumoniae PCR (Not Detect) Adenovirus (PCR) (Not Detect) B. pertussis DNA (PCR) (Not Detecte) B.parapertussis DNA PCR (Not Detecte) Coronavirus OC43 (PCR) (Not Detect) Coronavirus HKU1 (PCR) (Not Detect) Coronavirus 229E (PCR) (Not Detect) SARS-CoV-2 (PCR) (Not Detecte) Coronavirus NL63 (PCR) (Not Detect) Human Metapneumovir PCR (Not Detect) Influenza Type A (PCR) (Not Detect) Influenza Type B (PCR) (Not Detect) M. pneumoniae (PCR) (Not Detect) Parainfluenza 1 (PCR) (Not Detect) Parainfluenza 2 (PCR) (Not Detect) Parainfluenza 3 (PCR) (Not Detect) Parainfluenza 4 (PCR) (Not Detect) RSV (PCR) (Not Detect) Entero/Rhino (PCR) (Not Detect) 03/21/23 03/21/23 03/21/23 Range/Units 13:40 13:40 13:40 WBC (4.5-11.0) X10^3/uL RBC (4.0-5.2) X10^6/uL Hgb (12.0-16.0) g/dL Hct (36-46) % MCV (80-100) fL MCH (26-34) PG MCHC (30-36) % RDW (11.6-14.8) % Plt Count (150-400) X10^3/uL Neut % (Auto) (50-75) % Lymph % (Auto) (25-40) % [place] % (Auto) (3-14) % Eos % (Auto) (2-4) % Baso % (Auto) (0-2) % Neut # (Auto) (8099-3815) /uL Lymph # (Auto) (2428-2475) /uL [place] # (Auto) (0-900) /uL Eos # (Auto) (0-450) /uL Baso # (Auto) (0-100) /uL PT (10.1-12.7) SECONDS INR (0.9-1.3) ABG pH (7.35-7.45) ABG pCO2 (35-45) mmHg ABG pO2 (80-100) mmHg ABG HCO3 (23-27) mmol/L ABG Total CO2 (23-27) mmol/L ABG O2 Saturation (95-100) % ABG Base Excess (-2-3) mmol/L FiO2 Sodium (137-145) mmol/L Potassium (3.4-5.1) mmol/L Chloride (98-107) mmol/L Carbon Dioxide (22-32) mmol/L BUN (7-17) mg/dL Creatinine (0.52-1.04) mg/dL Estimated GFR (>60) mL/min BUN/Creatinine Ratio (6-22) Glucose (80-110) mg/dL Lactate 0.8 (0.7-2.1) mmol/L Calcium (8.4-10.2) mg/dL Total Bilirubin (0.2-1.3) mg/dL AST (14-36) IU/L ALT (<35) IU/L Alkaline Phosphatase (38-126) U/L Troponin I (0.01-0.034) ng/mL NT-Pro-B Natriuret Pep 246 (<450) pg/mL Total Protein (6.3-8.2) g/dL Albumin (3.5-5.0) g/dL Globulin (1.7-4.1) g/dL Albumin/Globulin Ratio (1.0-2.8) Procalcitonin 0.07 (<0.5) ng/mL Chlamy pneumoniae PCR (Not Detect) Adenovirus (PCR) (Not Detect) B. pertussis DNA (PCR) (Not Detecte) B.parapertussis DNA PCR (Not Detecte) Coronavirus OC43 (PCR) (Not Detect) Coronavirus HKU1 (PCR) (Not Detect) Coronavirus 229E (PCR) (Not Detect) SARS-CoV-2 (PCR) (Not Detecte) Coronavirus NL63 (PCR) (Not Detect) Human Metapneumovir PCR (Not Detect) Influenza Type A (PCR) (Not Detect) Influenza Type B (PCR) (Not Detect) M. pneumoniae (PCR) (Not Detect) Parainfluenza 1 (PCR) (Not Detect) Parainfluenza 2 (PCR) (Not Detect) Parainfluenza 3 (PCR) (Not Detect) Parainfluenza 4 (PCR) (Not Detect) RSV (PCR) (Not Detect) Entero/Rhino (PCR) (Not Detect) 03/21/23 03/21/23 Range/Units 15:47 17:05 WBC (4.5-11.0) X10^3/uL RBC (4.0-5.2) X10^6/uL Hgb (12.0-16.0) g/dL Hct (36-46) % MCV (80-100) fL MCH (26-34) PG MCHC (30-36) % RDW (11.6-14.8) % Plt Count (150-400) X10^3/uL Neut % (Auto) (50-75) % Lymph % (Auto) (25-40) % [place] % (Auto) (3-14) % Eos % (Auto) (2-4) % Baso % (Auto) (0-2) % Neut # (Auto) (0046-7200) /uL Lymph # (Auto) (8549-9845) /uL [place] # (Auto) (0-900) /uL Eos # (Auto) (0-450) /uL Baso # (Auto) (0-100) /uL PT (10.1-12.7) SECONDS INR (0.9-1.3) ABG pH 7.30 L (7.35-7.45) ABG pCO2 78.4 H* (35-45) mmHg ABG pO2 61 L (80-100) mmHg ABG HCO3 39 H (23-27) mmol/L ABG Total CO2 41 H (23-27) mmol/L ABG O2 Saturation 86 L (95-100) % ABG Base Excess 12.0 H (-2-3) mmol/L FiO2 32 Sodium (137-145) mmol/L Potassium (3.4-5.1) mmol/L Chloride (98-107) mmol/L Carbon Dioxide (22-32) mmol/L BUN (7-17) mg/dL Creatinine (0.52-1.04) mg/dL Estimated GFR (>60) mL/min BUN/Creatinine Ratio (6-22) Glucose (80-110) mg/dL Lactate (0.7-2.1) mmol/L Calcium (8.4-10.2) mg/dL Total Bilirubin (0.2-1.3) mg/dL AST (14-36) IU/L ALT (<35) IU/L Alkaline Phosphatase (38-126) U/L Troponin I (0.01-0.034) ng/mL NT-Pro-B Natriuret Pep (<450) pg/mL Total Protein (6.3-8.2) g/dL Albumin (3.5-5.0) g/dL Globulin (1.7-4.1) g/dL Albumin/Globulin Ratio (1.0-2.8) Procalcitonin (<0.5) ng/mL Chlamy pneumoniae PCR Not detected (Not Detect) Adenovirus (PCR) Not detected (Not Detect) B. pertussis DNA (PCR) Not detected (Not Detecte) B.parapertussis DNA PCR Not detected (Not Detecte) Coronavirus OC43 (PCR) Not detected (Not Detect) Coronavirus HKU1 (PCR) Not detected (Not Detect) Coronavirus 229E (PCR) Not detected (Not Detect) SARS-CoV-2 (PCR) Not detected (Not Detecte) Coronavirus NL63 (PCR) Not detected (Not Detect) Human Metapneumovir PCR Not detected (Not Detect) Influenza Type A (PCR) Not detected (Not Detect) Influenza Type B (PCR) Not detected (Not Detect) M. pneumoniae (PCR) Not detected (Not Detect) Parainfluenza 1 (PCR) Not detected (Not Detect) Parainfluenza 2 (PCR) Not detected (Not Detect) Parainfluenza 3 (PCR) Not detected (Not Detect) Parainfluenza 4 (PCR) Not detected (Not Detect) RSV (PCR) Not detected (Not Detect) Entero/Rhino (PCR) Not detected (Not Detect) Imaging Data Chest x-ray: Radiologist's Impression: PROCEDURE:? XR CHEST 1V ? INDICATIONS:? Shortness of breath ? TECHNIQUE:? One view of the chest was acquired.? ? COMPARISON:? [facility], CR, XR CHEST 1V, 11/03/2022, 19:13. ? FINDINGS:? ? Surgical changes and devices:? Post ORIF changes are seen in left humeral shaft. ? Lungs and pleura:? There is mild pulmonary vascular congestion.? No definite focal infiltrate.? No pleural effusions or pneumothorax.? ? Mediastinum:? Tortuous thoracic aorta is seen.? Heart size is enlarged. ? Bones and chest wall:? No suspicious bony lesions.? Overlying soft tissues appear unremarkable.? ? IMPRESSION:? Cardiomegaly and mild congestion.? No definite focal infiltrate.? No pleural effusion or pneumothorax. ? ? Dictated by: Rodolfo Gates M.D. on 03/21/2023 at 14:09 CT scan - chest: Radiologist's Impression: PROCEDURE:? CT ANGIO CHEST PE PROTOCOL ? INDICATIONS:? hypoxia ? TECHNIQUE:? After the administration of intravenous contrast, 2 mm thick sections acquired from the pulmonary apices to the posterior costophrenic angles.? maximum intensity projection (MIP) coronal and sagittal reformats were then acquired through the thorax.? For radiation dose reduction, the following was used:? automated exposure control, adjustment of mA and/or kV according to patient size.? ? COMPARISON:? None. ? FINDINGS:? Image quality:? Excellent.? ? Pulmonary arteries:? Pulmonary arteries are normal in size, and demonstrate no intraluminal filling defects to suggest central pulmonary embolism.? ? Lungs and pleura:? Right lower lobe segmental a mucous plugging in the airway associated atelectasis and or infiltrate right base. ? Mediastinum:? Heart size is normal, without pericardial effusion.? No mediastinal or hilar adenopathy.? Thoracic aorta is normal in caliber and enhancement.? Esophagus is normal in caliber, without hiatal hernia.? ? Bones and chest wall:? No evidence of lytic or blastic lesion.? No compression fractures. ?Erosive changes at the right glenohumeral joint large joint effusion ? Abdomen:? Visualized upper abdominal solid organs appear normal in the early arterial phase of enhancement.? ? IMPRESSION:? ? No evidence of pulmonary emboli, aortic dissection or aneurysm. ? Right lower lobe segmental airway mucous plugging associated with atelectasis ? Exaggerated thoracic kyphosis ? ? ? Approved by: James Hawley M.D. on 03/21/2023 at 16:07? [facility] Narrative Medical decision making narrative: Patient 82-year-old female who has really kyphosis and restrictive lung disease also has significant history of smoking. She is on chronically home O2 about 2- 3 L. Presenting today with increasing weakness and maybe more shortness of breath. She really isn't requiring too much more oxygen here. Blood work reassuring, no leukocytosis or anemia. Electrolytes are stable since March 04 she is persistent mild hyperkalemia of 5.3 with any changes from previously. Chest x-ray appeared to have hyperinflated lungs CT show chronic right lower lobe infiltrate suggestive of a mucous plugging. She is not having fever. ABG does show hypercapnia with a CO2 of 78 and a pH of 7.3. She is awake alert and oriented able to speak in make decisions currently. Discussed with her BiPAP however she is quite adamant that she does not warranted she is afraid of it. Discussion with family. I discussed case with Dr. Franco on-call hospitalist who is in room to speak in evaluate patient. Initially recommended a repeat ABG there was not significant change. Patient continues to refuse BiPAP. She is accepted to the floor. Discharge Plan Departure Patient Disposition: Admitted As Inpatient Clinical Impression: COPD (chronic obstructive pulmonary disease), Acute hypercapnic respiratory failure Admit Date/Time: 03/21/23 17:42 Admit Provider: Marco Franco
[2023-03-21 13:59] LABS: Add Manual Diff / Slide Review NO; Basophils Absolute Auto 0 /uL (0-100); Basophils Percent Auto 0.3 % (0-2); Eosinophils Absolute Auto 100 /uL (0-450); Eosinophils Percent Auto 1.3 % (2-4); Hematocrit 38.6 % (36-46); Hemoglobin 12.7 g/dL (12.0-16.0); Lymphocytes Absolute Auto 500 /uL (1100-4500); Lymphocytes Percent Auto 5.5 % (25-40); Mean Corpuscular HGB Conc 32.8 % (30-36); Mean Corpuscular Hemoglobin 33.7 PG (26-34); Mean Corpuscular Volume 102.6 fL (80-100); Monocytes Absolute Auto 600 /uL (0-900); Monocytes Percent Auto 6.9 % (3-14); Neutrophils Absolute Auto 7100 /uL (1500-7000); Platelet Count 142 X10^3/uL (150-400); Red Blood Cell Count 3.76 X10^6/uL (4.0-5.2); Red Cell Distribution Width 15.5 % (11.6-14.8); White Blood Cell Count 8.2 X10^3/uL (4.5-11.0)
[2023-03-21] MEDS: ALBUTEROL/IPRATROPIUM 3 ML AMPUL INH ×3 (14:02→20:30)
[2023-03-21] MEDS: BUDESONIDE 0.5 MG/2 ML NEB INH ×2 (14:03→20:40)
[2023-03-21 14:10] LABS: Lactate (Lactic Acid) 0.8 mmol/L (0.7-2.1)
[2023-03-21 14:11] LABS: Alanine Aminotransferase 20 IU/L (<35); Albumin 4.1 g/dL (3.5-5.0); Albumin Globulin Ratio 1.3 (1.0-2.8); Alkaline Phosphatase 45 U/L (38-126); Aspartate Aminotransferase 30 IU/L (14-36); BUN Creatinine Ratio 38.6 (6-22); Bilirubin Total 0.6 mg/dL (0.2-1.3); Blood Urea Nitrogen 22 mg/dL (7-17); Chloride 92 mmol/L (98-107); Estimated Glomerular Filt Rate > 60 mL/min (>60); Globulin 3.1 g/dL (1.7-4.1); Glucose 112 mg/dL (80-110); Potassium 5.3 mmol/L (3.4-5.1); Sodium 136 mmol/L (137-145); Total Protein 7.2 g/dL (6.3-8.2)
[2023-03-21 14:17] LABS: Carbon Dioxide 39 mmol/L (22-32)
[2023-03-21 14:18] LABS: HEMOLYSIS 81 (0-50)
[2023-03-21 14:20] LABS: NT-proBNP (BNP-Adult 18+) 240 pg/mL (<450); Troponin I 0.012 ng/mL (0.01-0.034)
[2023-03-21] MEDS: SODIUM CHLORIDE 0.9% 1,000 ML 1000 ML IV (14:38)
[2023-03-21] MEDS: GABAPENTIN 600 MG TABLET PO (14:38)
[2023-03-21] MEDS: TRAMADOL 50 MG TABLET PO (14:39)
[2023-03-21] MEDS: HYDROCODONE/ACET 10/325 TABLET 1 TAB PO (14:39)
[2023-03-21] MEDS: LIDOCAINE PATCH 1 EACH ADH..PATCH TOP (14:39)
[2023-03-21 14:51] LABS: Procalcitonin 0.07 ng/mL (<0.5)
[2023-03-21 15:18] LABS: NT-proBNP (BNP-Adult 18+) 246 pg/mL (<450)
--- NOTE | 2023-03-21 15:59 | DI.CT.S_ITS ---
PROCEDURE: CT ANGIO CHEST PE PROTOCOL INDICATIONS: hypoxia TECHNIQUE: After the administration of intravenous contrast, 2 mm thick sections acquired from the pulmonary apices to the posterior costophrenic angles. maximum intensity projection (MIP) coronal and sagittal reformats were then acquired through the thorax. For radiation dose reduction, the following was used: automated exposure control, adjustment of mA and/or kV according to patient size. COMPARISON: None. FINDINGS: Image quality: Excellent. Pulmonary arteries: Pulmonary arteries are normal in size, and demonstrate no intraluminal filling defects to suggest central pulmonary embolism. Lungs and pleura: Right lower lobe segmental a mucous plugging in the airway associated atelectasis and or infiltrate right base. Mediastinum: Heart size is normal, without pericardial effusion. No mediastinal or hilar adenopathy. Thoracic aorta is normal in caliber and enhancement. Esophagus is normal in caliber, without hiatal hernia. Bones and chest wall: No evidence of lytic or blastic lesion. No compression fractures. Erosive changes at the right glenohumeral joint large joint effusion Abdomen: Visualized upper abdominal solid organs appear normal in the early arterial phase of enhancement. IMPRESSION: No evidence of pulmonary emboli, aortic dissection or aneurysm. Right lower lobe segmental airway mucous plugging associated with atelectasis Exaggerated thoracic kyphosis Approved by: James Hawley M.D. on 03/21/2023 at 16:07
[2023-03-21 16:01] LABS: PCO2 ABG 78.4 mmHg (35-45)
[2023-03-21 16:02] LABS: Fractionated Inspired Oxygen 32; HCO3 ABG 39 mmol/L (23-27); Oxygen Saturation ABG 86 % (95-100); PO2 ABG 61 mmHg (80-100); TCO2 ABG 41 mmol/L (23-27)
[2023-03-21 18:05] LABS: Adenovirus Not Detected (Not Detect); B. parapertussis Not Detected (Not Detecte); Bordetella pertussis Not Detected (Not Detecte); Chlamydophila pneumoniae Not Detected (Not Detect); Coronavirus 229E Not Detected (Not Detect); Coronavirus HKU1 Not Detected (Not Detect); Coronavirus NL 63 Not Detected (Not Detect); Coronavirus OC43 Not Detected (Not Detect); Human Metapneumovirus Not Detected (Not Detect); Human Rhinovirus/Enterovirus Not Detected (Not Detect); Influenza A Not Detected (Not Detect); Influenza B Not Detected (Not Detect); Mycoplasma pneumoniae Not Detected (Not Detect); Parainfluenza Virus 1 Not Detected (Not Detect); Parainfluenza Virus 2 Not Detected (Not Detect); Parainfluenza Virus 3 Not Detected (Not Detect); Parainfluenza Virus 4 Not Detected (Not Detect); Respiratory Syncytial Virus Not Detected (Not Detect); SARS- CoV-2 Not Detected (Not Detecte)
--- NOTE | 2023-03-21 18:05 | P.HP_ITS ---
History of Present Illness History of Present Illness Date Patient Seen: 03/21/23 Time Patient Seen: 18:05 Chief complaint: SOB 85% on 3L Narrative: This is an 82 year old female with PMH of restrictive lung disease (vs COPD), RA on methotrexate, HTN, Chronic back pain and severe kyphoscoliosis who presents over the past few days with worsening fatigue, somnolence. She usually uses 3 L of oxygen, has not had increased requirements. She denies worsening cough, d enies productive cough, and reports no fevers, chills, chest pain, palpitations, abdominal pain, nausea, vomiting, or diarrhea. She did increase her home opiate therapies recently (norco). In the emergency room, her blood gas was acidotic with pH 7.30 and a PCO2 of 78.4. Labs showed a normal WBC at 8.2, negative procalcitonin, mild worsening of chronic thrombocytopenia with Plt 142, negative troponin, negative proBNP, negative respiratory panel. CTA showed kyphosis with RLL mucous plugging and atelectasis which patient reports has been there for quite some time. We had prolonged discussion and goals of care discussion. She is DNR/DNI with limited interventions. She is interested in trial of BiPAP and steroids to see if improvement. She does not wish for transfer for pulmonology nor any procedures if due to worsening kyphosis. [facility] Medical History Acute thoracic back pain Bilateral hand pain Latasha albicans infection Chronic neck and back pain Chronic pain Chronic, continuous use of opioids COPD (chronic obstructive pulmonary disease) Dry cough Eczema Elevated BUN Finger joint swelling Hyperkalemia Inflamed seborrheic keratosis On methotrexate therapy Social History Smoking Status: Former smoker alcohol intake: never substance use type: does not use Meds Home Medications and Allergies Home Medications Medication Instructions Recorded Confirmed Type Wheel Chair #1 ea 12/31/21 03/08/23 Rx cholecalciferol (vitamin D3) 1,000 units PO DAILY 12/31/21 03/08/23 History multivitamin 1 tab PO DAILY 12/31/21 03/21/23 History albuterol sulfate 90 mcg/actuation 1 - 2 inh inhalation Q4-6H PRN 07/30/22 03/21/23 Rx aerosol inhaler shortness of breath or wheezing #8.5 grams folic acid 1 mg tablet 1 mg PO DAILY #30 tabs 07/30/22 03/21/23 Rx methotrexate sodium 7.5 mg tablet 7.5 mg PO QWEEK #12 tabs 09/07/22 03/21/23 Rx amlodipine 5 mg tablet 5 mg PO DAILY #90 tabs 10/20/22 03/21/23 Rx lisinopril 20 mg tablet 20 mg PO DAILY #90 tabs 10/20/22 03/21/23 Rx hydrochlorothiazide 25 mg tablet 25 mg PO DAILY #90 tabs 10/22/22 03/21/23 Rx hydrochlorothiazide 50 mg tablet 50 mg PO DAILY #90 tabs 10/22/22 03/21/23 Rx tiotropium bromide 1.25 See Rx Instructions .Route 11/04/22 03/21/23 Rx mcg/actuation mist for inhalation .COMPLEX #12 grams (Spiriva Respimat) gabapentin 600 mg tablet 600 mg PO TID #270 tabs 11/10/22 03/21/23 Rx celecoxib 200 mg capsule (Celebrex) 200 mg PO QDAY #90 caps 12/01/22 03/21/23 Rx hydrocodone 10 mg-acetaminophen 1 tab PO Q6H PRN pain #120 tabs 02/23/23 03/21/23 Rx 325 mg tablet tramadol 50 mg tablet 50 mg PO QID #360 tabs 02/24/23 03/21/23 Rx Secondary Oxygen concentrator #1 ea 03/21/23 Rx lidocaine 4 % topical patch 1 patch topical TID PRN Pain, Mild 03/21/23 03/21/23 History Allergies Allergy/AdvReac Type Severity Reaction Status Date / Time Penicillins Allergy Mild ITCHING Verified 03/08/23 11:50 Sulfa (Sulfonamide Allergy Mild ITCHING Verified 03/08/23 11:50 Antibiotics) oxycodone AdvReac Mild Nausea, Verified 03/08/23 11:50 vomiting Review of Systems Review of Systems Narrative: All other systems reviewed with the patient and are negative unless otherwise stated. Exam Vital Signs (past 8 hours): - 03/21/23 13:35 03/21/23 13:43 03/21/23 13:44 Temperature 98.0 F Pulse Rate 96 H 101 H 100 H Respiratory Rate 22 Blood Pressure 130/62 Pulse Oximetry 95 93 93 Oxygen Delivery Method Nasal Cannula Oxygen Flow Rate 4 03/21/23 13:44 03/21/23 14:05 03/21/23 14:00 Temperature Pulse Rate Respiratory Rate Blood Pressure 134/65 142/65 H Pulse Oximetry 93 Oxygen Delivery Method Nasal Cannula Oxygen Flow Rate 3 03/21/23 14:00 03/21/23 14:30 03/21/23 14:35 Temperature Pulse Rate 101 H 109 H 101 H Respiratory Rate 31 H 32 H 16 Blood Pressure Pulse Oximetry 91 Oxygen Delivery Method Oxygen Flow Rate 03/21/23 14:35 03/21/23 15:19 03/21/23 15:30 Temperature Pulse Rate 98 H Respiratory Rate 37 H Blood Pressure 207/88 H Pulse Oximetry 95 96 Oxygen Delivery Method Oximask Oximask Oxygen Flow Rate 5 3 03/21/23 15:35 03/21/23 15:35 03/21/23 16:00 Temperature Pulse Rate 99 H Respiratory Rate 26 H Blood Pressure 134/61 127/60 Pulse Oximetry 91 Oxygen Delivery Method Oximask Oxygen Flow Rate 3 03/21/23 16:00 03/21/23 16:30 03/21/23 17:00 Temperature Pulse Rate 96 H 97 H 104 H Respiratory Rate 18 24 28 H Blood Pressure Pulse Oximetry 96 95 99 Oxygen Delivery Method Oxygen Flow Rate 03/21/23 17:01 03/21/23 17:01 Temperature Pulse Rate 104 H Respiratory Rate 28 H Blood Pressure 137/63 Pulse Oximetry 96 Oxygen Delivery Method Oxygen Flow Rate Oxygen Delivery Method Oximask Oxygen Flow Rate 3 Narrative Exam Narrative: General:? Patient is well developed and well nourished, in no distress at this time. HEENT:? Normocephalic, atraumatic, extraocular muscles intact, oral pharynx is clear and mucous membranes are moist. Neck: supple and symmetric, trachea is midline, no cervical adenopathy. + lordosis Chest:?excessive kyphosis, no tenderness Lungs:? CTA b/l no wheezing rhonchi or rales. Cardio:?tachycardic, regular rhythm with no m/r/g Abdomen: S NT ND. Musculoskeletal:? Muscle strength and tone are equal within normal limits, no deformity. Extremities: No edema or joint effusions. No cyanosis or clubbing. Skin:? Pale,? Warm to touch,dry and intact without rashes, ulcerations or petechiae.? Neuro:? Alert and orientated x3,? sensation to touch intact in all extremities, no gross deficits noted of cranial nerves. Psych:? Patient has a well-kept appearance, appropriate affect, mental status attitude thought context and judgment are appropriate for age. Objective Labs 03/21/23 13:40 03/21/23 13:40 Labs: Laboratory Results - last 24 hr 03/21/23 03/21/23 03/21/23 13:40 13:40 13:40 WBC 8.2 RBC 3.76 L Hgb 12.7 Hct 38.6 MCV 102.6 H MCH 33.7 MCHC 32.8 RDW 15.5 H Plt Count 142 L Neut % (Auto) 86.0 H Lymph % (Auto) 5.5 L Carbon % (Auto) 6.9 Eos % (Auto) 1.3 L Baso % (Auto) 0.3 Neut # (Auto) 7100 H Lymph # (Auto) 500 L Carbon # (Auto) 600 Eos # (Auto) 100 Baso # (Auto) 0 PT 11.7 INR 1.0 ABG pH ABG pCO2 ABG pO2 ABG HCO3 ABG Total CO2 ABG O2 Saturation ABG Base Excess FiO2 Sodium 136 L Potassium 5.3 H Chloride 92 L Carbon Dioxide 39 H BUN 22 H Creatinine 0.57 Estimated GFR > 60 BUN/Creatinine Ratio 38.6 H Glucose 112 H Lactate Calcium 9.0 Total Bilirubin 0.6 AST 30 ALT 20 Alkaline Phosphatase 45 Troponin I 0.012 NT-Pro-B Natriuret Pep 240 Total Protein 7.2 Albumin 4.1 Globulin 3.1 Albumin/Globulin Ratio 1.3 Procalcitonin 03/21/23 03/21/23 03/21/23 13:40 13:40 13:40 WBC RBC Hgb Hct MCV MCH MCHC RDW Plt Count Neut % (Auto) Lymph % (Auto) Carbon % (Auto) Eos % (Auto) Baso % (Auto) Neut # (Auto) Lymph # (Auto) Carbon # (Auto) Eos # (Auto) Baso # (Auto) PT INR ABG pH ABG pCO2 ABG pO2 ABG HCO3 ABG Total CO2 ABG O2 Saturation ABG Base Excess FiO2 Sodium Potassium Chloride Carbon Dioxide BUN Creatinine Estimated GFR BUN/Creatinine Ratio Glucose Lactate 0.8 Calcium Total Bilirubin AST ALT Alkaline Phosphatase Troponin I NT-Pro-B Natriuret Pep 246 Total Protein Albumin Globulin Albumin/Globulin Ratio Procalcitonin 0.07 03/21/23 15:47 WBC RBC Hgb Hct MCV MCH MCHC RDW Plt Count Neut % (Auto) Lymph % (Auto) Carbon % (Auto) Eos % (Auto) Baso % (Auto) Neut # (Auto) Lymph # (Auto) Carbon # (Auto) Eos # (Auto) Baso # (Auto) PT INR ABG pH 7.30 L ABG pCO2 78.4 H* ABG pO2 61 L ABG HCO3 39 H ABG Total CO2 41 H ABG O2 Saturation 86 L ABG Base Excess 12.0 H FiO2 32 Sodium Potassium Chloride Carbon Dioxide BUN Creatinine Estimated GFR BUN/Creatinine Ratio Glucose Lactate Calcium Total Bilirubin AST ALT Alkaline Phosphatase Troponin I NT-Pro-B Natriuret Pep Total Protein Albumin Globulin Albumin/Globulin Ratio Procalcitonin Assessment & Plan Assessment & Plan narrative: 1. Acute on chronic respiratory failure with hypercapnea, with chronic hypoxemic respiratory failure with respiratory acidosis - unclear etiology. Reports of chronic consolidation based on report, also no leukocytosis, fever, cough, etc. to suggest pneumonia - suspect possible opiate overdosing leading to hypercapnea, but not certain gi tanya lack of improvement in ER with no medication given. - no improvement in ABG, will give steroids, BiPAP trial overnight to see if patient tolerates or improves. - respiratory panel is negative, will hold on antibiotics at this time. - extensive discussion about goals of care, patient does not wish for intubation, transfer, or procedures even if this is progression of her kyphosis leading to respiratory failure - if no improvement after bipap or with steroids +/- initiation of antibiotics, would suggest hospice which was discussed with patient and family - Tele-ICU consult ordered - goal O2 88-96%, ideally low 90s while on supplemental therapy. - will order EKG 2. COPD/restrictive lung disease with possible exacerbation - give methylprednisolone 125 mg x1, prednisone 40 mg daily starting tomorrow - start standing nebs including pulmicort, duonebs, and albuterol - RT eval and randi 3. Chronic back pain with opiate use. - try to limit therapy given hypercapnea, with underlying knowledge of chronic pain with kyphosis and need for pain medicaitons. - CT without evidence of thoracic fractures. 4. Rheumatoid arthritis - hold methotrexate while in house - CT noted joint effusion incidentally, but doubt contributing to current presentation but may be leading to increased pain. - consider orthopedics or rhematology depending on progress with hypercapnea overnight. 5. HTN - will hold home lisinopril, HCTZ, and amlodipine at this time, resume slowly if becoming hypertensive. Code: DNR/DNI, limited medical intervention Advanced Care Planning: I have spent 20 minutes involved in the advanced care planning of this patient as summarized above in HPI. Additional history obtained via discussion with ER provider and extensive outpatient chart review. I spent 45 minutes providing critical care management this patient. This excludes time spent in performing separately billed procedures. Dispo: admit to ICU COVID-19 COVID-19 status: Negative Quality MIPS - Admit I confirm the patient?s Advance Care Plan is present, Code status is documented, Surrogate decision maker is in patient?s record [If Yes, STOP here]: Yes
[2023-03-21 18:48] LABS: HCO3 ABG 39 mmol/L (23-27); PCO2 ABG 77.3 mmHg (35-45); PO2 ABG 54 mmHg (80-100)
[2023-03-21 18:49] LABS: Fractionated Inspired Oxygen 28; Oxygen Saturation ABG 83 % (95-100); TCO2 ABG 41 mmol/L (23-27)
--- NOTE | 2023-03-21 20:15 | PC.NURSE ---
refusing bipap. Pt will go to floor.
--- NOTE | 2023-03-21 20:18 | PC.NURSE ---
aroused pt , pt resting deeply asked pt if she would allow Bipap pt stated no
--- NOTE | 2023-03-21 21:15 | PC.NURSE ---
aroused pt to ask if she would be willing to allow Bipap to be placed on her, pt stated she did not want to have Bipap
[2023-03-22] VITALS (8 sets, daily range): BP systolic 109–129; BP diastolic 42–65; PULSE 88–109; RESP 18–19; TEMP 35.7–36.1; O2SAT 90–100
[2023-03-22] MEDS: methylPREDNISolone 125 MG/2 ML VIAL IV (01:33)
[2023-03-22] MEDS: TRAMADOL 50 MG TABLET PO ×5 (01:34→20:11)
[2023-03-22] MEDS: GABAPENTIN 600 MG TABLET PO ×3 (01:36→20:11)
[2023-03-22] MEDS: HYDROCODONE/ACET 5/325 TABLET 1 TAB PO (06:02)
[2023-03-22 06:13] LABS: Add Manual Diff / Slide Review NO; Basophils Absolute Auto 100 /uL (0-100); Basophils Percent Auto 0.8 % (0-2); Eosinophils Absolute Auto 100 /uL (0-450); Eosinophils Percent Auto 0.5 % (2-4); Hematocrit 40.4 % (36-46); Hemoglobin 13.2 g/dL (12.0-16.0); Lymphocytes Absolute Auto 200 /uL (1100-4500); Mean Corpuscular HGB Conc 32.6 % (30-36); Mean Corpuscular Hemoglobin 33.2 PG (26-34); Monocytes Absolute Auto 100 /uL (0-900); Monocytes Percent Auto 0.7 % (3-14); Neutrophils Absolute Auto 11000 /uL (1500-7000); Platelet Count 142 X10^3/uL (150-400); Red Blood Cell Count 3.96 X10^6/uL (4.0-5.2); Red Cell Distribution Width 15.8 % (11.6-14.8); White Blood Cell Count 11.4 X10^3/uL (4.5-11.0)
[2023-03-22 06:52] LABS: Alanine Aminotransferase 18 IU/L (<35); Albumin 3.9 g/dL (3.5-5.0); Albumin Globulin Ratio 1.5 (1.0-2.8); Alkaline Phosphatase 58 U/L (38-126); Aspartate Aminotransferase 21 IU/L (14-36); BUN Creatinine Ratio 32.7 (6-22); Bilirubin Total 0.5 mg/dL (0.2-1.3); Blood Urea Nitrogen 17 mg/dL (7-17); Calcium 9.3 mg/dL (8.4-10.2); Carbon Dioxide 39 mmol/L (22-32); Chloride 93 mmol/L (98-107); Estimated Glomerular Filt Rate > 60 mL/min (>60); Globulin 2.6 g/dL (1.7-4.1); Glucose 122 mg/dL (80-110); HEMOLYSIS < 15 (0-50); Magnesium 1.9 mg/dL (1.6-2.3); Potassium 4.5 mmol/L (3.4-5.1); Sodium 135 mmol/L (137-145); Total Protein 6.5 g/dL (6.3-8.2)
--- NOTE | 2023-03-22 07:38 | P.PN_ITS ---
Subjective Subjective Interval history: Patient less lethargic today and says her breathing is fine. She has her daughter at the bedside and hospice was discussed. They all elected to pursue hospice at home so BUSINESS UNIT DIRECTOR arranging this. Exam Vital Signs (past 8 hours): - 03/22/23 02:17 03/22/23 02:00 03/22/23 06:00 Temperature 96.8 F L 96.9 F L Pulse Rate 88 103 H Respiratory Rate 18 18 Blood Pressure 129/60 129/54 L Pulse Oximetry 100 94 Oxygen Delivery Method Oximask Oxygen Flow Rate 5 7 7 Fraction of Inspired Oxygen 40 Fraction of Inspired Oxygen 40 Oxygen Delivery Method Oximask Oxygen Flow Rate 7 Narrative Exam Narrative: General:? Patient is well developed and well nourished, in no distress at this time. HEENT:? Normocephalic, atraumatic, extraocular muscles intact, oral pharynx is clear and mucous membranes are moist. Neck: supple and symmetric, trachea is midline, no cervical adenopathy. + lordosis Chest:?excessive kyphosis, no tenderness Lungs:? CTA b/l no wheezing rhonchi or rales. Cardio:?tachycardic, regular rhythm with no m/r/g Abdomen: S NT ND. Musculoskeletal:? Muscle strength and tone are equal within normal limits, no deformity. Extremities: No edema or joint effusions. No cyanosis or clubbing. Skin:? Pale,? Warm to touch,dry and intact without rashes, ulcerations or petechiae.? Neuro:? Alert and orientated x3,? sensation to touch intact in all extremities, no gross deficits noted of cranial nerves. Psych:? Patient has a well-kept appearance, appropriate affect, mental status attitude thought context and judgment are appropriate for age. Objective Labs 03/22/23 06:03 03/22/23 06:03 Labs: Laboratory Results - last 24 hr 03/21/23 03/21/23 03/21/23 13:40 13:40 13:40 WBC 8.2 RBC 3.76 L Hgb 12.7 Hct 38.6 MCV 102.6 H MCH 33.7 MCHC 32.8 RDW 15.5 H Plt Count 142 L Neut % (Auto) 86.0 H Lymph % (Auto) 5.5 L Newton % (Auto) 6.9 Eos % (Auto) 1.3 L Baso % (Auto) 0.3 Neut # (Auto) 7100 H Lymph # (Auto) 500 L Newton # (Auto) 600 Eos # (Auto) 100 Baso # (Auto) 0 PT 11.7 INR 1.0 ABG pH ABG pCO2 ABG pO2 ABG HCO3 ABG Total CO2 ABG O2 Saturation ABG Base Excess FiO2 Sodium 136 L Potassium 5.3 H Chloride 92 L Carbon Dioxide 39 H BUN 22 H Creatinine 0.57 Estimated GFR > 60 BUN/Creatinine Ratio 38.6 H Glucose 112 H Lactate Calcium 9.0 Magnesium Total Bilirubin 0.6 AST 30 ALT 20 Alkaline Phosphatase 45 Troponin I 0.012 NT-Pro-B Natriuret Pep 240 Total Protein 7.2 Albumin 4.1 Globulin 3.1 Albumin/Globulin Ratio 1.3 Procalcitonin Chlamy pneumoniae PCR Adenovirus (PCR) B. pertussis DNA (PCR) B.parapertussis DNA PCR Coronavirus OC43 (PCR) Coronavirus HKU1 (PCR) Coronavirus 229E (PCR) SARS-CoV-2 (PCR) Coronavirus NL63 (PCR) Human Metapneumovir PCR Influenza Type A (PCR) Influenza Type B (PCR) M. pneumoniae (PCR) Parainfluenza 1 (PCR) Parainfluenza 2 (PCR) Parainfluenza 3 (PCR) Parainfluenza 4 (PCR) RSV (PCR) Entero/Rhino (PCR) 03/21/23 03/21/23 03/21/23 13:40 13:40 13:40 WBC RBC Hgb Hct MCV MCH MCHC RDW Plt Count Neut % (Auto) Lymph % (Auto) Newton % (Auto) Eos % (Auto) Baso % (Auto) Neut # (Auto) Lymph # (Auto) Newton # (Auto) Eos # (Auto) Baso # (Auto) PT INR ABG pH ABG pCO2 ABG pO2 ABG HCO3 ABG Total CO2 ABG O2 Saturation ABG Base Excess FiO2 Sodium Potassium Chloride Carbon Dioxide BUN Creatinine Estimated GFR BUN/Creatinine Ratio Glucose Lactate 0.8 Calcium Magnesium Total Bilirubin AST ALT Alkaline Phosphatase Troponin I NT-Pro-B Natriuret Pep 246 Total Protein Albumin Globulin Albumin/Globulin Ratio Procalcitonin 0.07 Chlamy pneumoniae PCR Adenovirus (PCR) B. pertussis DNA (PCR) B.parapertussis DNA PCR Coronavirus OC43 (PCR) Coronavirus HKU1 (PCR) Coronavirus 229E (PCR) SARS-CoV-2 (PCR) Coronavirus NL63 (PCR) Human Metapneumovir PCR Influenza Type A (PCR) Influenza Type B (PCR) M. pneumoniae (PCR) Parainfluenza 1 (PCR) Parainfluenza 2 (PCR) Parainfluenza 3 (PCR) Parainfluenza 4 (PCR) RSV (PCR) Entero/Rhino (PCR) 03/21/23 03/21/23 03/21/23 15:47 17:05 18:34 WBC RBC Hgb Hct MCV MCH MCHC RDW Plt Count Neut % (Auto) Lymph % (Auto) Newton % (Auto) Eos % (Auto) Baso % (Auto) Neut # (Auto) Lymph # (Auto) Newton # (Auto) Eos # (Auto) Baso # (Auto) PT INR ABG pH 7.30 L 7.30 L ABG pCO2 78.4 H* 77.3 H* ABG pO2 61 L 54 L ABG HCO3 39 H 39 H ABG Total CO2 41 H 41 H ABG O2 Saturation 86 L 83 L* ABG Base Excess 12.0 H 12.0 H FiO2 32 28 Sodium Potassium Chloride Carbon Dioxide BUN Creatinine Estimated GFR BUN/Creatinine Ratio Glucose Lactate Calcium Magnesium Total Bilirubin AST ALT Alkaline Phosphatase Troponin I NT-Pro-B Natriuret Pep Total Protein Albumin Globulin Albumin/Globulin Ratio Procalcitonin Chlamy pneumoniae PCR Not detected Adenovirus (PCR) Not detected B. pertussis DNA (PCR) Not detected B.parapertussis DNA PCR Not detected Coronavirus OC43 (PCR) Not detected Coronavirus HKU1 (PCR) Not detected Coronavirus 229E (PCR) Not detected SARS-CoV-2 (PCR) Not detected Coronavirus NL63 (PCR) Not detected Human Metapneumovir PCR Not detected Influenza Type A (PCR) Not detected Influenza Type B (PCR) Not detected M. pneumoniae (PCR) Not detected Parainfluenza 1 (PCR) Not detected Parainfluenza 2 (PCR) Not detected Parainfluenza 3 (PCR) Not detected Parainfluenza 4 (PCR) Not detected RSV (PCR) Not detected Entero/Rhino (PCR) Not detected 03/22/23 03/22/23 06:03 06:03 WBC 11.4 H RBC 3.96 L Hgb 13.2 Hct 40.4 MCV 102.0 H MCH 33.2 MCHC 32.6 RDW 15.8 H Plt Count 142 L Neut % (Auto) 96.0 H Lymph % (Auto) 2.0 L Newton % (Auto) 0.7 L Eos % (Auto) 0.5 L Baso % (Auto) 0.8 Neut # (Auto) 10470 H Lymph # (Auto) 200 L Newton # (Auto) 100 Eos # (Auto) 100 Baso # (Auto) 100 PT INR ABG pH ABG pCO2 ABG pO2 ABG HCO3 ABG Total CO2 ABG O2 Saturation ABG Base Excess FiO2 Sodium 135 L Potassium 4.5 Chloride 93 L Carbon Dioxide 39 H BUN 17 Creatinine 0.52 Estimated GFR > 60 BUN/Creatinine Ratio 32.7 H Glucose 122 H Lactate Calcium 9.3 Magnesium 1.9 Total Bilirubin 0.5 AST 21 ALT 18 Alkaline Phosphatase 58 Troponin I NT-Pro-B Natriuret Pep Total Protein 6.5 Albumin 3.9 Globulin 2.6 Albumin/Globulin Ratio 1.5 Procalcitonin Chlamy pneumoniae PCR Adenovirus (PCR) B. pertussis DNA (PCR) B.parapertussis DNA PCR Coronavirus OC43 (PCR) Coronavirus HKU1 (PCR) Coronavirus 229E (PCR) SARS-CoV-2 (PCR) Coronavirus NL63 (PCR) Human Metapneumovir PCR Influenza Type A (PCR) Influenza Type B (PCR) M. pneumoniae (PCR) Parainfluenza 1 (PCR) Parainfluenza 2 (PCR) Parainfluenza 3 (PCR) Parainfluenza 4 (PCR) RSV (PCR) Entero/Rhino (PCR) [facility] Medical History Acute thoracic back pain Bilateral hand pain Latasha albicans infection Chronic neck and back pain Chronic pain Chronic, continuous use of opioids COPD (chronic obstructive pulmonary disease) Dry cough Eczema Elevated BUN Finger joint swelling Hyperkalemia Inflamed seborrheic keratosis On methotrexate therapy Social History household members: none Smoking Status: Former smoker alcohol intake: former substance use type: does not use Assessment & Plan Assessment & Plan narrative: 1. Acute on chronic respiratory failure with hypercapnea, with chronic hypoxemic respiratory failure with respiratory acidosis - unclear etiology. Reports of chronic consolidation based on report, also no l eukocytosis, fever, cough, etc. to suggest pneumonia - suspect possible opiate overdosing leading to hypercapnea, but not certain given lack of improvement in ER with no medication given. - no improvement in ABG, will give steroids, BiPAP trial overnight to see if patient tolerates or improves. - respiratory panel is negative, will hold on antibiotics at this time. - extensive discussion about goals of care, patient does not wish for intubation, transfer, or procedures even if this is progression of her kyphosis leading to respiratory failure - she is refusing bipap - goal O2 88-96%, ideally low 90s while on supplemental therapy. - a 20 minute conversation was had with family and patient about hospice, they would like to pursue this as she understands her condition is terminal 2. COPD/restrictive lung disease with possible exacerbation - give methylprednisolone 125 mg x1, prednisone 40 mg daily starting tomorrow - start standing nebs including pulmicort, duonebs, and albuterol - RT eval and treat - patient would like nebulizers setup through hospice 3. Chronic back pain with opiate use. - try to limit therapy given hypercapnea, with underlying knowledge of chronic pain with kyphosis and need for pain medicaitons. - CT without evidence of thoracic fractures. 4. Rheumatoid arthritis - hold methotrexate while in house - CT noted joint effusion incidentally, but doubt contributing to current presentation but may be leading to increased pain. - consider orthopedics or rhematology depending on progress with hypercapnea overnight. 5. HTN - will hold home lisinopril, HCTZ, and amlodipine at this time as patient is normotensive Code: DNR/DNI, limited medical intervention Dispo: Home on 03/23 with hospice. COVID-19 COVID-19 status: Negative Quality VTE Deep Vein Thrombosis/Pulmonary Embolism Present on Admission: No
[2023-03-22] MEDS: BUDESONIDE 0.5 MG/2 ML NEB INH (08:57)
[2023-03-22] MEDS: ALBUTEROL/IPRATROPIUM 3 ML AMPUL INH ×2 (08:57→19:16)
[2023-03-22] MEDS: MULTIVITAMIN 1 TABLET 1 TAB PO (09:39)
[2023-03-22] MEDS: ENOXAPARIN 40 MG/0.4 ML SYRINGE SUBCUT (09:40)
[2023-03-22] MEDS: FOLIC ACID 1 MG TABLET PO (09:40)
[2023-03-22] MEDS: predniSONE 20 MG TABLET 40 MG PO (09:40)
--- NOTE | 2023-03-22 11:00 | PC.NURSE ---
Patient has been talking to discharge planning and the Doctor about maybe going on hospice. She is on o2 at 3l nc and sats in the low 90s. Patients lung sounds with wheeze to r.mid low and decreased bases. She is on bed rest. Voiding well, tried to have a bowel movement on the bed banks but unable. Family in room and they hae made the decision to do hospice.
--- NOTE | 2023-03-22 11:16 | CM.DANOTE ---
Addendum entered by Karolyn Suresh R.N. 03/22/23 13:31: Spoke to Prema at [facility]. She had their provider review patient, does not feel that patient qualifies for hospice as of yet. Will have a hospice nurse go out to the home tomorrow to see patient about [phone]. This DC Chip Frier can still open patient with home health prior to discharge, and can convert to hospice then. Updated hospitalist, and asked Prema to update patient' daughter, Oralia, which she did. Original Note: DCP: Case received, EMR reviewed and met with patient. Daughter, Oralia, and her spouse were also at bedside. Introduced self and role. Was able to obtain information regarding patient's baseline activity level at home, as well as her current living situation. DCP assessment completed with information currently available. Patient is an 82 year old female who admitted yesterday afternoon to the care of the hospitalist team. PCP: Dr. Velasquez. Payer: confirmed: Medicare/[employer] for [employer]. Patient came to the hospital via ambulance secondary to having increased weakness, shortness of breath. Patient does have history of restrictive lung disease, is currently on 3 liters of oxygen at home. Patient had also noted a decrease in her appetite, and coughing. Patient was acidotic in the ER. She is DNR/DNI, patient agreed with trial of BIPAP and steroids, no transfer for pulmonology. Patient has kyphosis, which has been worsening. Patient admitted for acute on chronic respiratory failure with hypercapnea, respiratory acidosis. Met with patient in her room. She is alert and oriented, oxygen in place. Daughter, Oralia, is DPOA, son in law in the room. Confirmed that she lives steps away, on property of family in [place]. At her baseline, she is mostly wheel-chair bound. Her daughter provides all assist with meals, bathing, takes her to appointments. Originally had discussed home health. Family then asked about hospice. Did give them some information regarding hospice services. Family and patient then wanted to think about it, and see hospitalist. Shortly after, family decided that they want [facility]. This DC Chip Frier called [facility] and faxed the referral. They have between a 24-48 turnaround. Spoke to Prema. Patient most likely will need a hospital bed, will follow up with a phone call to see if equipment can come tomorrow, including a nebulizer. Patient currently has [employer] supplies, they are working on getting more portables until [facility] delivers. Will follow up with [facility] today. P: DCP to continue to follow. Will call back [facility] today, they should be doing a phone information visit with daughter. Sent over face sheet, ER report, H&P, med list, labs. Karloyn Suresh RN/Donor Services Technician Discharge Planning/Care Management Advanced directive, confirm from FAMILY Start: 03/21/23 22:39 Freq: Q24H Status: Active Protocol: Document 03/21/23 22:39 AGW (Rec: 03/22/23 05:48 AGW [id number]) Advance Directive, confirm on record Time 22:30 Person contacted patient Copy received No CM Discharge Assessment Start: 03/22/23 10:52 Freq: Status: Active Protocol: Document 03/22/23 10:52 (Rec: 03/22/23 11:07 [id number]) Discharge Planning Assessment Assigned Balance Staff Staker Karolyn Suresh RN/Donor Services Technician Advance Directives? Yes Advance Directives on File No History Provided By Patient,Medical Record Prior Living Arrangements House Comment Pt lives on the same property as her daughter Household Members none Comment Family lives a few feet away Type of transporation used prior to Relies on Others admit Needs Assistance With Bathing,Meal Prep,Managing Medications,Home Chores / Shopping Community Services used prior to Oxygen Therapy admission: Comment Currently has [employer] oxygen DME Already Rented / Owned Wheelchair Barriers to Discharge No Comment Has supportive family Discharge Plan Hospice Transportation Arrangement Family Referrals Initiated Other Additional Comment [facility] Whiteboard Updated in Patient Room with Yes name and ext. # of Balance Staff Staker Review Status In Process Next Review Type Continued Stay Review
[2023-03-22] MEDS: ALBUTEROL 2.5 MG/3 ML NEB (ADULT) INH (13:15)
[2023-03-22] MEDS: HYDROCODONE/ACET 5/325 TABLET 2 TAB PO (19:44)
[2023-03-22] MEDS: LORazepam 2 MG/ML INJ 0.5 MG IV (20:11)
[2023-03-23 00:54] VITALS: BP 120/47; PULSE 97; RESP 18; TEMP 36; O2SAT 93
[2023-03-23 04:51] VITALS: BP 133/55; PULSE 100; RESP 18; TEMP 36.1; O2SAT 90
[2023-03-23 06:38] LABS: Add Manual Diff / Slide Review NO; Basophils Absolute Auto 100 /uL (0-100); Basophils Percent Auto 0.5 % (0-2); Eosinophils Absolute Auto 100 /uL (0-450); Eosinophils Percent Auto 0.7 % (2-4); Hematocrit 39.9 % (36-46); Hemoglobin 13.1 g/dL (12.0-16.0); Lymphocytes Absolute Auto 800 /uL (1100-4500); Lymphocytes Percent Auto 8.5 % (25-40); Mean Corpuscular HGB Conc 32.9 % (30-36); Mean Corpuscular Hemoglobin 33.6 PG (26-34); Mean Corpuscular Volume 102.1 fL (80-100); Monocytes Absolute Auto 800 /uL (0-900); Monocytes Percent Auto 8.2 % (3-14); Neutrophils Absolute Auto 7800 /uL (1500-7000); Neutrophils Percent Auto 82.1 % (50-75); Platelet Count 140 X10^3/uL (150-400); Red Blood Cell Count 3.91 X10^6/uL (4.0-5.2); Red Cell Distribution Width 16.2 % (11.6-14.8); White Blood Cell Count 9.5 X10^3/uL (4.5-11.0)
[2023-03-23 06:43] LABS: Alanine Aminotransferase 17 IU/L (<35); Albumin 3.9 g/dL (3.5-5.0); Albumin Globulin Ratio 1.4 (1.0-2.8); Alkaline Phosphatase 47 U/L (38-126); Aspartate Aminotransferase 21 IU/L (14-36); BUN Creatinine Ratio 38.5 (6-22); Bilirubin Total 0.3 mg/dL (0.2-1.3); Blood Urea Nitrogen 25 mg/dL (7-17); Calcium 9.3 mg/dL (8.4-10.2); Chloride 92 mmol/L (98-107); Estimated Glomerular Filt Rate > 60 mL/min (>60); Globulin 2.8 g/dL (1.7-4.1); Glucose 92 mg/dL (80-110); HEMOLYSIS < 15 (0-50); Magnesium 1.9 mg/dL (1.6-2.3); Potassium 3.8 mmol/L (3.4-5.1); Sodium 135 mmol/L (137-145); Total Protein 6.7 g/dL (6.3-8.2)
[2023-03-23 06:49] LABS: Carbon Dioxide 36 mmol/L (22-32)
[2023-03-23 07:21] VITALS: PULSE 88; RESP 16; O2SAT 92
[2023-03-23] MEDS: BUDESONIDE 0.5 MG/2 ML NEB INH (07:21)
[2023-03-23] MEDS: ALBUTEROL/IPRATROPIUM 3 ML AMPUL INH (07:21)
[2023-03-23 07:45] VITALS: BP 114/50; PULSE 101; RESP 14; TEMP 36.1; O2SAT 90
[2023-03-23] MEDS: TRAMADOL 50 MG TABLET PO (09:17)
[2023-03-23] MEDS: AMLODIPINE 5 MG TABLET PO (09:17)
[2023-03-23] MEDS: MULTIVITAMIN 1 TABLET 1 TAB PO (09:17)
[2023-03-23] MEDS: GABAPENTIN 600 MG TABLET PO (09:18)
[2023-03-23] MEDS: FOLIC ACID 1 MG TABLET PO (09:18)
[2023-03-23] MEDS: ENOXAPARIN 40 MG/0.4 ML SYRINGE SUBCUT (09:18)
[2023-03-23] MEDS: predniSONE 20 MG TABLET 40 MG PO (09:18)
[2023-03-23] MEDS: LORazepam 2 MG/ML INJ 0.5 MG IV (09:56)
[2023-03-23] MEDS: HYDROCODONE/ACET 5/325 TABLET 2 TAB PO (10:19)
--- NOTE | 2023-03-23 10:48 | PM.DS.1 ---
History of Present Illness History of Present Illness Date Patient Seen: 03/21/23 Time Patient Seen: 18:05 Chief complaint: SOB 85% on 3L Narrative: This is an 82 year old female with PMH of restrictive lung disease (vs COPD), RA on methotrexate, HTN, Chronic back pain and severe kyphoscoliosis who presents over the past few days with worsening fatigue, somnolence. She usually uses 3 L of oxygen, has not had increased requirements. She denies worsening cough, denies productive cough, and reports no fevers, chills, chest pain, palpitations, abdominal pain, nausea, vomiting, or diarrhea. She did increase her home opiate therapies recently (norco). In the emergency room, her blood gas was acidotic with pH 7.30 and a PCO2 of 78.4. Labs showed a normal WBC at 8.2, negative procalcitonin, mild worsening of chronic thrombocytopenia with Plt 142, negative troponin, negative proBNP, negative respiratory panel. CTA showed kyphosis with RLL mucous plugging and atelectasis which patient reports has been there for quite some time. We had prolonged discussion and goals of care discussion. She is DNR/DNI with limited interventions. She is interested in trial of BiPAP and steroids to see if improvement. She does not wish for transfer for pulmonology nor any procedures if due to worsening kyphosis. Discharge Providers Provider Date of admission: 03/21/23 17:42 Discharge Date: 03/23/23 Primary care physician: Mj Velasquez DO Consults: 03/21/23 22:40 Consult to Tele-fine craft artist Routine Comment: Consulting Provider: Coby Tele[employer]intensivists Reason for consultation: Hotel [employer]obby Concierge services Discharge provider: Jose Amaral DO Summary Hospital Course Discharge Diagnosis: 1. Acute on chronic respiratory failure with hypercapnea, with chronic hypoxemic respiratory failure with respiratory acidosis ?- unclear etiology. Reports of chronic consolidation based on report, also no leukocytosis, fever, cough, etc. to suggest pneumonia ?- suspect possible opiate overdosing leading to hypercapnea, but not certain given lack of improvement in ER with no medication given. ?- no improvement in ABG, will give steroids, BiPAP trial overnight to see if patient tolerates or improves. ?- respiratory panel is negative, will hold on antibiotics at this time. ?- extensive discussion about goals of care, patient does not wish for intubation, transfer, or procedures even if this is progression of her kyphosis leading to respiratory failure ?- she is refusing bipap ?- goal O2 88-96%, ideally low 90s while on supplemental therapy. ?- a 20 minute conversation was had with family and patient about hospice, they would like to pursue this as she understands her condition is terminal - hospice at home arranged and patient discharged with as a bridge to hospice 2. COPD/restrictive lung disease with possible exacerbation ?- give methylprednisolone 125 mg x1, prednisone 40 mg daily starting tomorrow ?- start standing nebs including pulmicort, duonebs, and albuterol ?- RT eval and treat ?- patient would like nebulizers setup through hospice 3. Chronic back pain with opiate use. ?- try to limit therapy given hypercapnea, with underlying knowledge of chronic pain with kyphosis and need for pain medicaitons. ?- CT without evidence of thoracic fractures. 4. Rheumatoid arthritis ?- hold methotrexate while in house ?- CT noted joint effusion incidentally, but doubt contributing to current presentation but may be leading to increased pain. ?- consider orthopedics or rhematology depending on progress with hypercapnea overnight. 5. HTN ?- will hold home lisinopril, HCTZ, and amlodipine at this time as patient is normotensive Code status: DNR/DNI, limited medical intervention Hospital Course: See above problem list. Time Spent with Patient Time spent: Greater than 30 minutes Exam Vital Signs (past 8 hours): - 03/23/23 04:51 03/23/23 07:21 03/23/23 07:45 Temperature 96.9 F L 96.9 F L Pulse Rate 100 H 88 101 H Respiratory Rate 18 16 14 Blood Pressure 133/55 L 114/50 L Pulse Oximetry 90 L 92 90 L Oxygen Delivery Method Nasal Cannula Oxygen Flow Rate 0.5 0.5 1 Fraction of Inspired Oxygen 40 Oxygen Delivery Method Nasal Cannula Oxygen Flow Rate 1 Narrative Exam Narrative: General:? Patient is well developed and well nourished, in no distress at this time. HEENT:? Normocephalic, atraumatic, extraocular muscles intact, oral pharynx is clear and mucous membranes are moist. Neck: supple and symmetric, trachea is midline, no cervical adenopathy. + lordosis Chest:?excessive kyphosis, no tenderness Lungs:? CTA b/l no wheezing rhonchi or rales. Cardio:?tachycardic, regular rhythm with no m/r/g Abdomen: S NT ND. Musculoskeletal:? Muscle strength and tone are equal within normal limits, no deformity. Extremities: No edema or joint effusions. No cyanosis or clubbing. Skin:? Pale,? Warm to touch,dry and intact without rashes, ulcerations or petechiae.? Neuro:? Alert and orientated x3,? sensation to touch intact in all extremities, no gross deficits noted of cranial nerves. Psych:? Patient has a well-kept appearance, appropriate affect, mental status attitude thought context and judgment are appropriate for age. Objective Labs 03/23/23 06:12 03/23/23 06:12 Labs: Laboratory Results - last 24 hr 03/23/23 03/23/23 06:12 06:12 WBC 9.5 RBC 3.91 L Hgb 13.1 Hct 39.9 MCV 102.1 H MCH 33.6 MCHC 32.9 RDW 16.2 H Plt Count 140 L Neut % (Auto) 82.1 H Lymph % (Auto) 8.5 L [place] % (Auto) 8.2 Eos % (Auto) 0.7 L Baso % (Auto) 0.5 Neut # (Auto) 7800 H Lymph # (Auto) 800 L [place] # (Auto) 800 Eos # (Auto) 100 Baso # (Auto) 100 Sodium 135 L Potassium 3.8 Chloride 92 L Carbon Dioxide 36 H BUN 25 H Creatinine 0.65 Estimated GFR > 60 BUN/Creatinine Ratio 38.5 H Glucose 92 Calcium 9.3 Magnesium 1.9 Total Bilirubin 0.3 AST 21 ALT 17 Alkaline Phosphatase 47 Total Protein 6.7 Albumin 3.9 Globulin 2.8 Albumin/Globulin Ratio 1.4 [facility] Medical History (Updated 03/29/23 @ 13:55 by Mj Velasquez DO) Acute thoracic back pain Bilateral hand pain Latasha albicans infection Chronic neck and back pain Chronic pain Chronic, continuous use of opioids COPD (chronic obstructive pulmonary disease) Dry cough Eczema Elevated BUN Finger joint swelling HTN (hypertension) Hyperkalemia Inflamed seborrheic keratosis On methotrexate therapy Social History household members: none Smoking Status: Former smoker alcohol intake: former substance use type: does not use Discharge Plan Discharge Plan Patient Disposition: Home Health Service Discharge orders & Medications Prescriptions: Continued amlodipine 5 mg tablet 5 mg PO DAILY Qty: 90 3RF lisinopril 20 mg tablet 20 mg PO DAILY Qty: 90 2RF hydrochlorothiazide 50 mg tablet 50 mg PO DAILY Qty: 90 2RF Rx Instructions: TAKE WITH 25MG TAB FOR TOTAL 75MG DAILY DOSE hydrochlorothiazide 25 mg tablet 25 mg PO DAILY Qty: 90 2RF Rx Instructions: TAKE WITH 50MG TABLET FOR TOTAL 75 MG DOSE Spiriva Respimat 1.25 mcg/actuation mist See Rx Instructions .ROUTE .COMPLEX Qty: 12 3RF Dose Instruction: USE 2 INHALATIONS DAILY Rx Instructions: USE 2 INHALATIONS DAILY gabapentin 600 mg tablet 600 mg PO TID Qty: 270 3RF celecoxib [Celebrex] 200 mg capsule 200 mg PO QDAY Qty: 90 1RF hydrocodone-acetaminophen 10-325 mg tablet 1 tab PO Q6H PRN (Reason: pain) Qty: 120 0RF tramadol 50 mg tablet 50 mg PO QID Qty: 360 0RF (DME) Secondary Oxygen concentrator See Rx Instructions .Route .MEDSUPPLY Qty: 1 0RF Rx Instructions: As directed methotrexate sodium 7.5 mg tablet 7.5 mg PO QWEEK Qty: 12 3RF multivitamin Tablet 1 tab PO DAILY cholecalciferol (vitamin D3) 1,000 units PO DAILY (DME) Wheel Chair See Rx Instructions .Route .MEDSUPPLY Qty: 1 0RF Rx Instructions: As directed albuterol sulfate 90 mcg/actuation HFA aerosol inhaler 1 - 2 inh inhalation Q4-6H PRN (Reason: shortness of breath or wheezing) Qty: 8.5 11RF lidocaine 4 % Adhesive Patch,Medicated 1 patch TOPICAL TID PRN (Reason: Pain, Mild) No Action folic acid 1 mg tablet 1 mg PO DAILY Qty: 90 1RF Rx Instructions: while on methotrexate Follow up/Referrals: Mj Velasquez, [Primary Care Provider] - 2 Weeks (please have family call to schedule this appointment ) Visit Report/Discharge Packet Instructions: DI for Respiratory Failure, Prednisone, Respiratory Failure Stand Alone Forms: Patient Portal/API, Stroke Signs & Symptoms Discharge Data Primary Care Provider: Mj Velasquez Discharges patient from system. Discharge Date/Time: 03/23/23 13:03 Quality VTE Deep Vein Thrombosis/Pulmonary Embolism Present on Admission: No
--- NOTE | 2023-03-23 10:56 | CM.DPC ---
DCP Cont: Met with patient and family. Discussed home health options, brought in ipad and choice list. They feel, and patient, that she does not need P.T, just nursing and bath aide. Daughter concerned that she has not yet been out of bed, nursing will get patient up. Family has no preferences on home health agencies, just who can see her the soonest. Called Sisi at [facility], no openings until the , at least. Called Linda at [facility], can see patient tomorrow, or Tuesday. Ordering RN and bath aide. Connie will fax the referral. Called Marya at [facility] and let her know that [facility] is being ordered, and if they can call [facility] if she qualifies. Let Linda know this as well. Completed face to face, orders. ANTON Rosales anesthesiologists' assistant is faxing the referral. P: Patient should be discharging home with [facility] today. Karolyn Suresh RN/Cushion Worker
[2023-03-23 11:50] VITALS: BP 116/51; PULSE 105; RESP 18; TEMP 36.3; O2SAT 93
--- NOTE | 2023-03-23 13:01 | PC.NURSE ---
Day shift: Paperwork signed and all questions answered. Family member in room for teachings also. New MD script sent to Pt's pharmacy electronic. Left unit via WC at approx 1300 by BAHMAN Moore. Family is driving her home and Family is helping at home with her care. Pt has all personal belongings.
== END 2023-03-23 13:03 | disposition home or self-care (01) | DRG 189 ==
LOC: ED 13:53 → AC 17:43
PROVIDERS: Admitting Provider Internal Medicine; Emergency Provider Emergency Medicine; Family Provider Family Medicine; PCP Family Medicine; Referring Provider Emergency Medicine; Visit Provider Internal Medicine
DX: J96.22 Acute and chronic respiratory failure with hypercapnia (principal); J44.1 Chronic obstructive pulmonary disease with (acute) exacerbation; E87.29 Other acidosis; D84.821 Immunodeficiency due to drugs; J96.11 Chronic respiratory failure with hypoxia; I10 Essential (primary) hypertension; G89.29 Other chronic pain; M54.9 Dorsalgia, unspecified; F11.90 Opioid use, unspecified, uncomplicated; M06.9 Rheumatoid arthritis, unspecified; Z79.631 Long term (current) use of antimetabolite agent; Z87.891 Personal history of nicotine dependence; Z66 Do not resuscitate; Z99.81 Dependence on supplemental oxygen
CPT/HCPCS: 36415; 36600; 71045; 71275; 80053; 82805; 83605; 83735; 83880; 84145; 84484; 85025; 85610; 87040; 87633; 94640; 94760; 94762; 99285; J1650; J2060; J2930; J7613; Q9967